=== PATIENT | female | born 1990 | race African-American/Black ===

== ENCOUNTER 2017-02-24 10:30 | Emergency (ER) | payer MEDICAID ==
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
[2017-02-24 12:36] VITALS: BP 97/51
== END 2017-02-24 12:18 | disposition home or self-care (01) ==
LOC: ER 10:30
DX: T59.811A Toxic effect of smoke, accidental (unintentional), initial encounter (principal); J70.5 Respiratory conditions due to smoke inhalation
CPT/HCPCS: 71020; 99283

== ENCOUNTER 2017-07-12 17:05 | Emergency (ER) | payer MEDICAID ==
--- NOTE | 2017-07-12 17:53 | ER Document Report ---
ED Medical Screen (RME) - General Chief Complaint: Abdominal Cramping Stated Complaint: NAUSEA// CRAMPING// Time Seen by Provider: 07/12/17 17:49 Notes: 26-year-old female patient comes emergency room complaining of a 1-1/2 week history of pelvic cramps, headache, nausea, chills, dizziness. Last menstrual period was 06/01/2017. This was confirmed by repeatedly asking the question. She states she does not think she is , she also states that her periods are normally regular. She does have a bag of food and soda from the [employer] in. I have greeted and performed a rapid initial assessment of this patient. A comprehensive ED assessment and evaluation of the patient, analysis of test results and completion of the medical decision making process will be conducted by additional ED providers. TRAVEL OUTSIDE OF THE [place] IN LAST 30 DAYS: No - Related Data Allergies/Adverse Reactions: No Known Allergies Allergy (Verified 07/12/17 17:46) Past Medical History - Social History Chew tobacco use (# tins/day): No Frequency of alcohol use: None Drug Abuse: None Renal/ Medical History: Denies: Hx Peritoneal Dialysis Psychiatric Medical History: Reports: Hx Anxiety Denies: Hx Depression - Immunizations Hx Diphtheria, Pertussis, Tetanus Vaccination: Yes Physical Exam - Vital signs Vitals: Temp Pulse Resp BP Pulse Ox 99.6 F 97 16 111/63 100 07/12/17 17:11 07/12/17 17:11 07/12/17 17:11 07/12/17 17:11 07/12/17 17:11 Course - Vital Signs Vital signs: Temp Pulse Resp BP Pulse Ox 99.6 F 97 16 111/63 100 07/12/17 17:11 07/12/17 17:11 07/12/17 17:11 07/12/17 17:11 07/12/17 17:11
[2017-07-12 18:37] LABS: APPEARANCE,URINE CLOUDY; BILIRUBIN,URINE NEGATIVE (NEGATIVE); GLUCOSE, URINE NEGATIVE (NEGATIVE); KETONES,URINE 20 mg/dL (NEGATIVE); LEUKOCYTE ESTERASE,URINE LARGE (NEGATIVE); NITRITE,URINE NEGATIVE (NEGATIVE); PROTEIN,URINE NEGATIVE (NEGATIVE); URINE SPECIFIC GRAVITY 1.027
[2017-07-12 18:39] LABS: HEMATOCRIT 32.1 % (36.0-47.0); HEMOGLOBIN 9.8 g/dL (12.0-15.5); HGB HCT DIFFERENCE -2.7; MEAN CORPUSCULAR HGB CONC 30.4 g/dL (32.0-36.0); RED BLOOD COUNT 5.13 10^6/uL (3.72-5.28); RED CELL DISTRIBUTION WIDTH 19.8 % (11.5-14.0); WHITE BLOOD COUNT 8.2 10^3/uL (4.0-10.5)
[2017-07-12 18:41] LABS: ALANINE AMINOTRANSFERASE 45 U/L (9-52); ALBUMIN 4.6 g/dL (3.5-5.0); ALKALINE PHOSPHATASE 69 U/L (38-126); ANION GAP 12 (5-19); ASPARTATE AMINO TRANSFERASE 24 U/L (14-36); BILIRUBIN,DIRECT 0.3 mg/dL (0.0-0.4); BILIRUBIN,TOTAL 0.6 mg/dL (0.2-1.3); BLOOD UREA NITROGEN 8 mg/dL (7-20); CALCIUM 9.7 mg/dL (8.4-10.2); CARBON DIOXIDE 26 mmol/L (22-30); CHLORIDE 102 mmol/L (98-107); CREATININE RESULT 0.57 mg/dL (0.52-1.25); GLUCOSE 100 mg/dL (75-110); POTASSIUM 3.6 mmol/L (3.6-5.0); SODIUM 140.3 mmol/L (137-145); TOTAL PROTEIN 7.6 g/dL (6.3-8.2)
[2017-07-12 18:48] LABS: MEAN CORPUSCULAR VOLUME 63 fl (80-97)
[2017-07-12 19:10] LABS: ANISOCYTOSIS 2+; BASOPHILS % (MANUAL) 1 % (0-2); EOSINOPHILS % (MANUAL) 0 % (0-6); LYMPHOCYTES % (MANUAL) 22 % (13-45); MICROCYTOSIS 3+; OVALOCYTES 2+; POIKILOCYTOSIS 2+; POLYCHROMASIA SLIGHT; ROULEAUX SLIGHT; TOTAL CELLS COUNTED 100; TOXIC GRANULATION 1+
[2017-07-12 19:20] LABS: ADD ON TESTING BLD IN LAB ACKNOWLEDGE
--- NOTE | 2017-07-12 21:44 | RADIOLOGY REPORT (SQ) ---
EXAM DESCRIPTION: U/S OB TRANSVAGINAL W/O DOP COMPLETED DATE/TIME: 07/12/2017 9:28 pm REASON FOR STUDY: Pelvic cramps COMPARISON: None. TECHNIQUE: Transvaginal static and realtime grayscale images acquired of the pelvis. Additional carol cted spectral and color Doppler images recorded. All images stored on PACs. BHC,521. LIMITATIONS: None. FINDINGS: UTERUS: No visualized intrauterine . RIGHT ADNEXA: Normal ovary with normal vascular flow. No adnexal free fluid. Small cystic structure measuring 1 cm. LEFT ADNEXA: Ovary not identified. No adnexal free fluid. No adnexal masses. FREE FLUID: None. OTHER: No other significant finding. IMPRESSION: NO VISUALIZED INTRA- OR EXTRAUTERINE . LEFT OVARY NOT VISUALIZED. ECTOPIC CANNOT BE EXCLUDED. FOLLOW-UP ULTRASOUND AND SERIAL BHCG LEVELS STRONGLY RECOMMENDED TO ACCURATELY ASSESS STATU S. TECHNICAL DOCUMENTATION: JOB ID: [id number] [employer]- All Rights Reserved
--- NOTE | 2017-07-12 21:58 | ER Document Report ---
ED General - General Chief Complaint: Abdominal Cramping Stated Complaint: ABDOMINAL CRAMPING Time Seen by Provider: 07/12/17 17:49 Notes: Patient is a 26-year-old female at unknown gestational age last menstrual period 06/01/17 who presents with 1 week of intermittent suprapubic abdominal cramping. She describes it as an intermittent, mild, cramping pain. Nothing improves or worsens that pain. She denies any history of similar symptoms in the past. She denies any dysuria, vaginal bleeding or discharge. No abdominal trauma. She has not seen her primary doctor or B2[employer] SALES REPRESENTATIVE regarding today's concerns. She has no prior history of pelvic inflammatory disease, sexually transmitted infections, or ectopic pregnancies. She denies any fever, vomiting , or diarrhea. No abdominal surgical history. TRAVEL OUTSIDE OF THE [place] IN LAST 30 DAYS: No - Related Data Allergies/Adverse Reactions: No Known Allergies Allergy (Verified 07/12/17 17:46) Past Medical History - General Information source: Patient - Social History Smoking Status: Never Smoker Chew tobacco use (# tins/day): No Frequency of alcohol use: None Drug Abuse: None Lives with: Spouse/Significant other Family History: Reviewed & Not Pertinent Patient has suicidal ideation: No Patient has homicidal ideation: No Renal/ Medical History: Denies: Hx Peritoneal Dialysis Psychiatric Medical History: Reports: Hx Anxiety Denies: Hx Depression - Immunizations Hx Diphtheria, Pertussis, Tetanus Vaccination: Yes Review of Systems - Review of Systems Notes: Constitutional: Negative for fever. HENT: Negative for sore throat. Eyes: Negative for visual changes. Cardiovascular: Negative for chest pain. Respiratory: Negative for shortness of breath. Gastrointestinal: Positive for abdominal pain Genitourinary: Negative for dysuria. Musculoskeletal: Negative for back pain. Skin: Negative for rash. Neurological: Negative for headaches, weakness or numbness. 10 point ROS negative except as marked above and in HPI. Physical Exam - Vital signs Vitals: Temp Pulse Resp BP Pulse Ox 99.6 F 97 16 111/63 100 07/12/17 17:11 07/12/17 17:11 07/12/17 17:11 07/12/17 17:11 07/12/17 17:11 Interpretation: Normal Notes: PHYSICAL EXAMINATION: GENERAL: Well-appearing, well-nourished and in no acute distress. HEAD: Atraumatic, normocephalic. EYES: Pupils equal round and reactive to light, extraocular movements intact, sclera anicteric, conjunctiva are normal. ENT: nares patent, oropharynx clear without exudates. Moist mucous membranes. NECK: Normal range of motion, supple without lymphadenopathy LUNGS: Breath sounds clear to auscultation bilaterally and equal. No wheezes rales or rhonchi. HEART: Regular rate and rhythm without murmurs ABDOMEN: Soft, very mild suprapubic abdominal tenderness otherwise no localized tenderness, normoactive bowel sounds. No guarding, no rebound. No masses appreciated. EXTREMITIES: Normal range of motion, no pitting or edema. No cyanosis. NEUROLOGICAL: No focal neurological deficits. Moves all extremities spontaneously and on command. PSYCH: Normal mood, normal affect. SKIN: Warm, Dry, normal turgor, no rashes or lesions noted. Course - Re-evaluation Re-evalutation: 07/12/17 21:57 Patient presents with symptoms and history worrisome for ectopic given that her hCG level is 11,000 and no intrauterine or extrauterine can be localized on a transvaginal ultrasound. The left ovary was not visualized however. Patient has no prior history of pelvic inflammatory disease, sexually transmitted infections or ectopic pregnancies. Her abdominal exam is overall benign without any localized tenderness other than the suprapubic region globally without any increased pain to the right or left adnexa. No vaginal bleeding or discharge. The remainder laboratories are overall unremarkable. I discussed this case with Dr. Fritz the B2B SALES REPRESENTATIVE [employer] special ed teacher who will come to assess the patient. 07/12/17 22:37 Dr. Fritz has come down to the bedside and reviewed the ultrasounds. He feels that there is evidence of an intrauterine on ultrasound and patient does not require repeat follow-up for possible ectopic . He has discussed this with the patient at the bedside. He has also contacted radiology and asked them to change the report. At this time will discharge with return precautions and follow-up recommendations. Verbal discharge instructions given a the bedside and opportunity for questions given. Medication warnings reviewed. Patient is in agreement with this plan and has verbalized understanding of return precautions and the need for B2B SALES REPRESENTATIVE follow- up in the next 24-72 hours. - Vital Signs Vital signs: Temp Pulse Resp BP Pulse Ox 98.5 F 88 18 120/78 98 07/12/17 23:19 07/12/17 23:19 07/12/17 23:19 07/12/17 23:19 07/12/17 23:19 - Laboratory Result Diagrams: 07/12/17 17:57 07/12/17 17:57 Laboratory results interpreted by me: 07/12/17 07/12/17 07/12/17 17:57 17:57 17:57 Hgb 9.8 L Hct 32.1 L MCV 63 L MCH 19.0 L MCHC 30.4 L RDW 19.8 H Serum HCG, Qual POSITIVE H Beta HCG, Quant Urine Ketones 20 H Urine Urobilinogen 4.0 H Ur Leukocyte Esterase LARGE H 07/12/17 17:57 Hgb Hct MCV MCH MCHC RDW Serum HCG, Qual Beta HCG, Quant 22429.00 H Urine Ketones Urine Urobilinogen Ur Leukocyte Esterase - Diagnostic Test Radiology reviewed: Reports reviewed Discharge - Discharge Clinical Impression: First trimester Abdominal pain during Qualifiers: Trimester: first trimester Qualified Code(s): O26.891 - Other specified related conditions, first trimester Condition: Good Disposition: HOME, SELF-CARE Additional Instructions: You were seen for abdominal pain during . Your ultrasound was initially concerning for possible ectopic but the B2B SALES REPRESENTATIVE who you saw Dr. Fritz has reviewed the ultrasounds and states that there is a inside her uterus. The exact cause your pain is uncertain but is likely related to your developing baby. Please follow-up with your B2B SALES REPRESENTATIVE in the next 24-48 hours. Return to the emergency department immediately if you have worsening of your pain, have persistent vomiting, develop a fever of greater than 100.4F, begin to have vaginal bleeding, or any other symptoms that are worrisome to you. Forms: Return to Work Referrals: DAVID FRITZ MD [Primary Care Provider] - Follow up as needed
[2017-07-12 23:20] VITALS: BP 120/78
== END 2017-07-12 23:19 | disposition home or self-care (01) ==
LOC: ER 17:05
DX: O26.891 Other specified pregnancy related conditions, first trimester (principal); R10.9 Unspecified abdominal pain; Z3A.01 Less than 8 weeks gestation of pregnancy
CPT/HCPCS: 36415; 76817; 80053; 81001; 84702; 84703; 85025; 87086; 99284

== ENCOUNTER 2017-07-22 14:24 | Emergency (ER) | payer MEDICAID ==
[2017-07-22] MEDS ORDERED: PROMETHAZINE HCL 25 MG TABLET PO ONE (14:59)
[2017-07-22] MEDS ORDERED: RINGERS SOLUTION,LACTATED 1,000 ML IV ONE (14:59)
--- NOTE | 2017-07-22 15:22 | ER Document Report ---
ED Medical Screen (RME) - General Chief Complaint: Nausea/Vomiting/Diarrhea Stated Complaint: VOMITING Time Seen by Provider: 07/22/17 14:54 Mode of Arrival: Ambulatory Information source: Patient Notes: Patient is a 26 year old female presenting to the emergency department complaining of nausea, vomiting, diarrhea, and left sided flank pain onset 2- weeks ago. Patient states that she is currently 4 weeks . Patient states she also has poor fluid and food intake. Patient denies dysuria, blood in vomit or stool, or any vaginal bleeding. Patient states her last menstrual cycle was 2016. I have greeted and performed a rapid initial assessment of this patient. A comprehensive ED assessment and evaluation of the patient, analysis of test results and completion of the medical decision making process will be conducted by additional ED providers. TRAVEL OUTSIDE OF THE [place] IN LAST 30 DAYS: No - Related Data Allergies/Adverse Reactions: No Known Allergies Allergy (Verified 07/22/17 14:25) Past Medical History Renal/ Medical History: Denies: Hx Peritoneal Dialysis Psychiatric Medical History: Reports: Hx Anxiety Denies: Hx Depression - Immunizations Hx Diphtheria, Pertussis, Tetanus Vaccination: Yes Physical Exam - Vital signs Vitals: Temp Pulse Resp BP Pulse Ox 98.8 F 91 20 111/66 100 07/22/17 14:38 07/22/17 14:38 07/22/17 14:38 07/22/17 14:38 07/22/17 14:38 - Notes Notes: GENERAL: Alert, interacts well. No acute distress. Course - Vital Signs Vital signs: Temp Pulse Resp BP Pulse Ox 98.8 F 91 20 111/66 100 07/22/17 14:38 07/22/17 14:38 07/22/17 14:38 07/22/17 14:38 07/22/17 14:38 Scribe Documentation - Scribe Written by Rudy:: Rudy Hood, 07/22/2017 15:27 acting as scribe for :: Gia
[2017-07-22 16:03] LABS: APPEARANCE,URINE SLIGHTLY-CLOUDY; BILIRUBIN,URINE NEGATIVE (NEGATIVE); GLUCOSE, URINE NEGATIVE (NEGATIVE); KETONES,URINE 80 mg/dL (NEGATIVE); LEUKOCYTE ESTERASE,URINE TRACE (NEGATIVE); NITRITE,URINE NEGATIVE (NEGATIVE); PROTEIN,URINE 30 mg/dL (NEGATIVE); URINE SPECIFIC GRAVITY 1.031
--- NOTE | 2017-07-22 16:08 | RADIOLOGY REPORT (SQ) ---
EXAM DESCRIPTION: U/S OB TRANSVAG W/DOPPLER COMPLETED DATE/TIME: 07/22/2017 3:57 pm REASON FOR STUDY: LLQ abd pain, possible ectopic COMPARISON: 07/12/2017 TECHNIQUE: Endovaginal static and realtime grayscale images acquired of the pelvis. Additional selec stephany spectral and color Doppler images recorded. All images stored on PACs. bHCG: Not available LIMITATIONS: None. FINDINGS: FETUS: Living intrauterine . EGA: 6 weeks 1 day by crown-rump length KAMILAH: 03/16/2018 FHR: 115 beats per minute. SUBCHORIONIC BLEED: Yes SIZE OF BLEED: Large subchorionic hemorrhage 3 x 2 x 1 cm in size UTERUS: No masses. No anomalies. Uterus is 10.7 x 7 x 6.5 cm in size CERVICAL LENGTH: 4 cm Closed. RIGHT ADNEXA: Not visualized due to adnexal bowel gas LEFT ADNEXA: Not visualized due to adnexal bowel gas FREE FLUID: None. OTHER: No other significant finding. IMPRESSION: LIVING INTRAUTERINE . EGA 6 weeks 1 day by crown-rump length. Large subchorionic hemorrhage, 3 x 2 x 1 cm in size. Trimester of : First - 0 to 13 weeks. TECHNICAL DOCUMENTATION: JOB ID: [id number] [employer]- All Rights Reserved
[2017-07-22] MEDS ORDERED: ACETAMINOPHEN 325 MG TABLET PO ONE (16:32)
[2017-07-22 17:03] LABS: ABSOLUTE BASOPHILS # (AUTO) 0.1 10^3/uL (0.0-0.2); ABSOLUTE LYMPHOCYTES (AUTO) 1.5 10^3/uL (0.5-4.7); ABSOLUTE MONOCYTES (AUTO) 0.7 10^3/uL (0.1-1.4); ABSOLUTE NEUT (AUTO) 5.1 10^3/uL (1.7-8.2); BASOPHILS % (AUTO) 1.1 % (0-2); HEMATOCRIT 34.1 % (36.0-47.0); HEMOGLOBIN 10.3 g/dL (12.0-15.5); HGB HCT DIFFERENCE -3.2; MEAN CORPUSCULAR HEMOGLOBIN 19.2 pg (27.0-33.4); MEAN CORPUSCULAR HGB CONC 30.1 g/dL (32.0-36.0); MONOCYTES % (AUTO) 9.7 % (3-13); RED BLOOD COUNT 5.36 10^6/uL (3.72-5.28); RED CELL DISTRIBUTION WIDTH 19.6 % (11.5-14.0); SEGMENTED NEUTROPHILS % (AUTO) 69.2 % (42-78); WHITE BLOOD COUNT 7.4 10^3/uL (4.0-10.5)
[2017-07-22 17:16] LABS: ALANINE AMINOTRANSFERASE 25 U/L (9-52); ALBUMIN 4.6 g/dL (3.5-5.0); ALKALINE PHOSPHATASE 62 U/L (38-126); ANION GAP 14 (5-19); ASPARTATE AMINO TRANSFERASE 20 U/L (14-36); BILIRUBIN,DIRECT 0.2 mg/dL (0.0-0.4); BILIRUBIN,TOTAL 0.5 mg/dL (0.2-1.3); BLOOD UREA NITROGEN 8 mg/dL (7-20); CALCIUM 9.8 mg/dL (8.4-10.2); CARBON DIOXIDE 25 mmol/L (22-30); CHLORIDE 99 mmol/L (98-107); CREATININE RESULT 0.54 mg/dL (0.52-1.25); GLUCOSE 76 mg/dL (75-110); POTASSIUM 4.1 mmol/L (3.6-5.0); SODIUM 138.2 mmol/L (137-145); TOTAL PROTEIN 7.6 g/dL (6.3-8.2)
[2017-07-22 17:20] LABS: MEAN CORPUSCULAR VOLUME 64 fl (80-97)
[2017-07-22 17:24] LABS: ANISOCYTOSIS 2+; MICROCYTOSIS 3+; OVALOCYTES 1+; TOXIC GRANULATION SLIGHT
[2017-07-22 17:25] LABS: HYPOCHROMASIA SLIGHT; POIKILOCYTOSIS 1+
[2017-07-22 17:26] LABS: POLYCHROMASIA SLIGHT
[2017-07-22] MEDS ORDERED: DEXTROSE 5%-1/2 NORMAL SALINE 1,000 ML IV ONE (17:38)
--- NOTE | 2017-07-22 17:41 | ER Document Report ---
ED GI/ - General Chief Complaint: Nausea/Vomiting/Diarrhea Stated Complaint: VOMITING Time Seen by Provider: 07/22/17 14:54 Mode of Arrival: Ambulatory Notes: The patient is a 26-year-old female, 6 weeks by LMP, , presents with nausea, vomiting and diarrhea for the past several days. She is also having left flank pain. She was in the ER 10 days ago and the ultrasound showed a possible intrauterine , but it was not fully visualized. Patient has not received any antiemetics to use at home but she has an appointment with the health department for her OB needs. Patient denies vaginal bleeding, cramping, dysuria, hematuria, fevers, vaginal discharge, syncope, chest pain, shortness of breath or sick contacts. TRAVEL OUTSIDE OF THE [place] IN LAST 30 DAYS: No - Related Data Allergies/Adverse Reactions: No Known Allergies Allergy (Verified 07/22/17 14:25) Past Medical History - General Information source: Patient - Social History Smoking Status: Unknown if Ever Smoked Family History: Reviewed & Not Pertinent Patient has suicidal ideation: No Patient has homicidal ideation: No Renal/ Medical History: Denies: Hx Peritoneal Dialysis Psychiatric Medical History: Reports: Hx Anxiety Denies: Hx Depression - Immunizations Hx Diphtheria, Pertussis, Tetanus Vaccination: Yes Review of Systems - Review of Systems Notes: REVIEW OF SYSTEMS: CONSTITUTIONAL: -fevers, -chills EENT: -eye pain, -difficulty swallowing, -nasal congestion CARDIOVASCULAR:-chest pain, -syncope. RESPIRATORY: -cough, -SOB GASTROINTESTINAL: -abdominal pain, +nausea, +vomiting, -diarrhea GENITOURINARY: -dysuria, -hematuria MUSCULOSKELETAL: +left flank pain, -neck pain SKIN: -rash or skin lesions. HEMATOLOGIC: -easy bruising or bleeding. LYMPHATIC: -swollen, enlarged glands. NEUROLOGICAL: -altered mental status or loss of consciousness, -headache, - neurologic symptoms PSYCHIATRIC: -anxiety, -depression. ALL OTHER SYSTEMS REVIEWED AND NEGATIVE. Physical Exam - Vital signs Vitals: Temp Pulse Resp BP Pulse Ox 98.8 F 91 20 111/66 100 07/22/17 14:38 07/22/17 14:38 07/22/17 14:38 07/22/17 14:38 07/22/17 14:38 - Notes Notes: PHYSICAL EXAMINATION: GENERAL: Well-appearing, well-nourished and in no acute distress. HEAD: Atraumatic, normocephalic. EYES: Pupils equal round and reactive to light, extraocular movements intact, sclera anicteric, conjunctiva are normal. ENT: nares patent, oropharynx clear without exudates. Moist mucous membranes. NECK: Normal range of motion, supple without lymphadenopathy LUNGS: Breath sounds clear to auscultation bilaterally and equal. No wheezes rales or rhonchi. HEART: Regular rate and rhythm without murmurs ABDOMEN: Soft, nontender, normoactive bowel sounds. No guarding, no rebound. No masses appreciated. EXTREMITIES: Normal range of motion, no pitting or edema. No cyanosis. NEUROLOGICAL: Cranial nerves grossly intact. Normal speech, normal gait. Normal sensory and motor exams. PSYCH: Normal mood, normal affect. SKIN: Warm, Dry, normal turgor, no rashes or lesions noted. Course - Re-evaluation Re-evalutation: Patient appears well. A repeat ultrasound confirms intrauterine consistent with dates along with a subchorionic hemorrhage. This was communicated to the patient and a copy of her ultrasound report was given. No vaginal bleeding at this time and she is feeling much better after IV fluids and antiemetics. Eating and drinking in the ED without nausea, vomiting or abdominal pain. Her urinalysis does not show evidence of a UTI and her prior urine culture from last week shows lactobacillus and no other bacterial infections. She has no urinary symptoms. Her left flank pain appears to be MSK in nature due to worsening pain with movement. Will send home patient with Phenergan, instructions to stay hydrated and follow-up with her OB. Given very strict return precautions and she understands. - Vital Signs Vital signs: Temp Pulse Resp BP Pulse Ox 98.8 F 91 20 111/66 100 07/22/17 14:38 07/22/17 14:38 07/22/17 14:38 07/22/17 14:38 07/22/17 14:38 - Laboratory Result Diagrams: 07/22/17 16:30 07/22/17 16:30 Laboratory results interpreted by me: 07/22/17 07/22/17 07/22/17 15:15 16:30 16:30 RBC 5.36 H Hgb 10.3 L Hct 34.1 L MCV 64 L MCH 19.2 L MCHC 30.1 L RDW 19.6 H Beta HCG, Quant 225011.00 H Urine Protein 30 H Urine Ketones 80 H Urine Urobilinogen 2.0 H Ur Leukocyte Esterase TRACE H Urine Ascorbic Acid 40 H - Diagnostic Test Radiology reviewed: Image reviewed, Reports reviewed Radiology results interpreted by me: OB Transvaginal: LIVING INTRAUTERINE . EGA 6 weeks 1 day by crown- rump length. Large subchorionic hemorrhage, 3 x 2 x 1 cm in size. Discharge - Discharge Clinical Impression: Hyperemesis gravidarum Condition: Stable Disposition: HOME, SELF-CARE Additional Instructions: Hyperemesis Gravidarum Hyperemesis gravidarum is the medical term for severe vomiting during . We don't know exactly why it occurs, but it's a common problem. Dehydration can occur. This reduces blood flow to the placenta, decreasing the baby's nourishment. The baby will also become dehydrated. There can be harmful changes in blood sodium, potassium, or acid balance. Our goal is to correct, and prevent, dehydration. For severe cases, we give IV fluids. Antinausea medication will be prescribed. (Don't be concerned about " defects" -- the risk to you and your baby from the hyperemesis is the biggest problem. The antinausea medication is very safe at this stage of .) Call the doctor if you have vaginal bleeding, abdominal pain, severe lightheadedness or weakness, or other alarming symptoms. Prescriptions: Promethazine HCl [Phenergan 25 mg Tablet] 1 - 2 tab PO Q6H PRN #30 tablet PRN Reason: Referrals: DAVID ENRIQUEZ MD [ACTIVE STAFF] - Follow up as needed
[2017-07-22 19:09] VITALS: BP 102/55
[2017-07-26 10:58] LABS: PATH REVIEW PATHOLOGIST REVIEWED
== END 2017-07-22 19:12 | disposition home or self-care (01) ==
LOC: ER 14:24
DX: O21.0 Mild hyperemesis gravidarum (principal); R19.7 Diarrhea, unspecified; Z3A.00 Weeks of gestation of pregnancy not specified
CPT/HCPCS: 99284; 96361; 96365; 86900; 86901; 36415; 84702; 85025; 80053; 81001; 76817; 93976; J3490 ×2; J7120

== ENCOUNTER 2017-08-25 08:18 | Inpatient (IN) | payer MEDICAID ==
--- NOTE | 2017-08-25 08:37 | ER Document Report ---
ED GI/ - General Chief Complaint: Vaginal Bleeding Stated Complaint: ABNORMAL BLEEDING Time Seen by Provider: 08/25/17 08:35 Mode of Arrival: Medic Information source: Patient Notes: 26 yo female got up at 7 am and blood running down legs. Cramping now. in [facility] 07-29. Bled for 2 weeks then stopped. Sex since . No contraception. No hormones. Headache. TRAVEL OUTSIDE OF THE [place] IN LAST 30 DAYS: No - Related Data Allergies/Adverse Reactions: No Known Allergies Allergy (Verified 07/22/17 14:25) Past Medical History - Social History Family History: Reviewed & Not Pertinent Renal/ Medical History: Denies: Hx Peritoneal Dialysis Psychiatric Medical History: Reports: Hx Anxiety Denies: Hx Depression - Immunizations Hx Diphtheria, Pertussis, Tetanus Vaccination: Yes Physical Exam - Vital signs Vitals: Temp Pulse Resp BP Pulse Ox 98.9 F 108 H 18 112/65 100 08/25/17 08:27 08/25/17 08:27 08/25/17 08:27 08/25/17 08:27 08/25/17 08:27 Course - Vital Signs Vital signs: Temp Pulse Resp BP Pulse Ox 98.9 F 108 H 18 112/65 100 08/25/17 08:27 08/25/17 08:27 08/25/17 08:27 08/25/17 08:27 08/25/17 08:27
--- NOTE | 2017-08-25 08:43 | ER Document Report ---
ED GI/ - General Chief Complaint: Vaginal Bleeding Stated Complaint: ABNORMAL BLEEDING Time Seen by Provider: 08/25/17 08:35 Mode of Arrival: Medic Information source: Patient Notes: 26 yo female had pill aborition in [place] at 8 weeks on 07-29, bled for 2 weeks then stopped. Got up this morning and blood running down legs with large clot at home. Cramping in now starting. Sex since without contraception. headache. no fever. Not feeling right all month, very tired. TRAVEL OUTSIDE OF THE [place] IN LAST 30 DAYS: No - Related Data Allergies/Adverse Reactions: No Known Allergies Allergy (Verified 08/25/17 09:10) Past Medical History - General Information source: Patient - Social History Smoking Status: Unknown if Ever Smoked Frequency of alcohol use: None Drug Abuse: None Lives with: Family Family History: Reviewed & Not Pertinent Renal/ Medical History: Denies: Hx Peritoneal Dialysis Psychiatric Medical History: Reports: Hx Anxiety Denies: Hx Depression Surgical Hx: Negative - Immunizations Hx Diphtheria, Pertussis, Tetanus Vaccination: Yes Review of Systems - Review of Systems Constitutional: No symptoms reported EENT: No symptoms reported Cardiovascular: No symptoms reported Respiratory: No symptoms reported Gastrointestinal: No symptoms reported Genitourinary: No symptoms reported Female Genitourinary: See HPI Musculoskeletal: No symptoms reported Skin: No symptoms reported Hematologic/Lymphatic: No symptoms reported Neurological/Psychological: No symptoms reported Physical Exam - Vital signs Vitals: Temp Pulse Resp BP Pulse Ox 98.9 F 108 H 18 112/65 100 08/25/17 08:27 08/25/17 08:27 08/25/17 08:27 08/25/17 08:27 08/25/17 08:27 Interpretation: Normal - General General appearance: Appears well - HEENT Head: Normocephalic, Atraumatic Eyes: Normal Pupils: PERRL Neck: Supple - Respiratory Respiratory status: No respiratory distress Chest status: Nontender Breath sounds: Normal Chest palpation: Normal - Cardiovascular Rhythm: Regular Heart sounds: Normal auscultation Murmur: No - Abdominal Inspection: Normal Distension: No distension Bowel sounds: Normal Tenderness: Nontender. No: Tender Organomegaly: No organomegaly - Back Back: Normal, Nontender. No: Tender - Extremities General upper extremity: Normal inspection, Nontender, Normal color, Normal ROM , Normal temperature General lower extremity: Normal inspection, Nontender, Normal color, Normal ROM , Normal temperature, Normal weight bearing. No: Marcelo's sign - Neurological Neuro grossly intact: Yes Cognition: Normal Orientation: AAOx4 Ja Coma Scale Eye Opening: Spontaneous [place] Coma Scale Verbal: Oriented Ja Coma Scale Motor: Obeys Commands Ja Coma Scale Total: 15 Speech: Normal Motor strength normal: LUE, RUE, LLE, RLE Sensory: Normal - Psychological Associated symptoms: Normal affect, Normal mood - Skin Skin Temperature: Warm Skin Moisture: Dry Skin Color: Normal Skin irregularity: negative: Rash Course - Re-evaluation Re-evalutation: 08/25/17 09:03 Patient became syncopal in the bathroom she is in trauma to IV infusing type and screen has been ordered pressure is now 95 systolic. pt no longer dizzy. 08/25/17 09:41 abdomen non tender 1 dark clot in [place], bluish discoloration to cervix. 9 more minutes on the HCG 08/25/17 10:07 hgb 5.5 hct 19.1 called by hematology, 2 units blood ordered to be given 08/25/17 10:10 Patient has history of anemia and needing iron infusions. 08/25/17 11:25 vaginal ultrasound shows nonviable 6 week intrauterine fetus. Large episode of bleeding after the ultrasound Dr. Ashby called in at the bedside. cytotec 1000mcg given SD 08/25/17 11:26 - Vital Signs Vital signs: Temp Pulse Resp BP Pulse Ox 98.9 F 108 H 26 H 90/48 L 100 08/25/17 08:27 08/25/17 08:27 08/25/17 11:26 08/25/17 11:26 08/25/17 11:06 - Laboratory Result Diagrams: 08/25/17 08:58 08/25/17 08:58 Laboratory results interpreted by me: 08/25/17 08/25/17 08/25/17 08:56 08:58 08:58 RBC 3.15 L Hgb 5.5 L Hct 19.1 L MCV 61 L MCH 17.3 L MCHC 28.6 L RDW 21.7 H Plt Count 88 L Potassium Carbon Dioxide Glucose POC Glucose 146 H Beta HCG, Quant 3531.90 H Urine Blood Ur Leukocyte Esterase Crossmatch 08/25/17 08/25/17 08/25/17 08:58 08:58 10:41 RBC Hgb Hct MCV MCH MCHC RDW Plt Count Potassium 3.3 L Carbon Dioxide 21 L Glucose 124 H POC Glucose Beta HCG, Quant Urine Blood LARGE H Ur Leukocyte Esterase TRACE H Crossmatch See Detail Discharge - Discharge Clinical Impression: non viable IUP, vaginal bleeding Condition: Fair Disposition: ADMITTED OBSERVATION Admitting Provider: [facility] Admitted: OR Referrals: EVIE LANDA MD [Primary Care Provider] - Follow up as needed
[2017-08-25] MEDS ORDERED: NORMAL SALINE 1000 ML 2,000 ML IV ONE (09:01)
[2017-08-25 09:17] LABS: ABSOLUTE BASOPHILS # (AUTO) 0.1 10^3/uL (0.0-0.2); ABSOLUTE LYMPHOCYTES (AUTO) 2.1 10^3/uL (0.5-4.7); BASOPHILS % (AUTO) 0.7 % (0-2); RED CELL DISTRIBUTION WIDTH 21.7 % (11.5-14.0); TOTAL CELLS COUNTED % (AUTO) 100 %
[2017-08-25] MEDS ORDERED: ACETAMINOPHEN 325 MG TABLET PO ONE (10:02)
[2017-08-25 10:03] LABS: RED BLOOD COUNT 3.15 10^6/uL (3.72-5.28); WHITE BLOOD COUNT 7.9 10^3/uL (4.0-10.5)
[2017-08-25 10:04] LABS: HEMATOCRIT 19.1 % (36.0-47.0); MEAN CORPUSCULAR HEMOGLOBIN 17.3 pg (27.0-33.4); MEAN CORPUSCULAR HGB CONC 28.6 g/dL (32.0-36.0)
[2017-08-25] MEDS ORDERED: NORMAL SALINE 250 ML IV PRN ×2 (10:04)
[2017-08-25 10:05] LABS: LYMPHOCYTES % (AUTO) 26.5 % (13-45); MEAN CORPUSCULAR VOLUME 61 fl (80-97); PLATELET COUNT 88 10^3/uL (150-450); SEGMENTED NEUTROPHILS % (AUTO) 62.9 % (42-78)
[2017-08-25 10:06] LABS: ABSOLUTE MONOCYTES (AUTO) 0.8 10^3/uL (0.1-1.4); MONOCYTES % (AUTO) 9.9 % (3-13)
[2017-08-25 10:07] LABS: HEMOGLOBIN 5.5 g/dL (12.0-15.5)
[2017-08-25 10:08] LABS: HYPOCHROMASIA 2+; OVALOCYTES 2+; POIKILOCYTOSIS 2+; POLYCHROMASIA SLIGHT; ROULEAUX SLIGHT; TEAR DROP CELLS SLIGHT
[2017-08-25 10:09] LABS: ANISOCYTOSIS 2+; PLATELET COMMENT DECREASED
--- NOTE | 2017-08-25 10:25 | RADIOLOGY REPORT (SQ) ---
EXAM DESCRIPTION: CT HEAD WITHOUT COMPLETED DATE/TIME: 08/25/2017 10:14 am REASON FOR STUDY: headache COMPARISON: None. TECHNIQUE: Axial images acquired through the brain without intravenous contrast. Images reviewed wi th bone, brain and subdural windows. Images stored on PACS. All CT scanners at this facility use dose modulation, iterative reconstruction, and/or weight based d osing when appropriate to reduce radiation dose to as low as reasonably achievable (ALARA). [facility]: Dose Right [facility]: CareDose [facility]: Dose Right [facility]: Teradose 4D [facility]: Rollbar RADIATION DOSE: mGy. LIMITATIONS: None. FINDINGS: VENTRICLES: Normal size and contour. CEREBRUM: No masses. No hemorrhage. No midline shift. No evidence for acute infarction. Normal gra y/white matter differentiation. No areas of low density in the white matter. CEREBELLUM: No masses. No hemorrhage. No alteration of density. No evidence for acute infarction. EXTRAAXIAL SPACES: No fluid collections. No masses. ORBITS AND GLOBE: No intra- or extraconal masses. Normal contour of globe without masses. CALVARIUM: No fracture. PARANASAL SINUSES: No fluid or mucosal thickening. SOFT TISSUES: No mass or hematoma. OTHER: No other significant finding. IMPRESSION: NORMAL BRAIN CT WITHOUT CONTRAST. EVIDENCE OF ACUTE STROKE: NO. COMMENT: Quality ID # [id number]: Final reports with documentation of one or more dose reduction techniques (e.g., Automated exposure control, adjustment of the mA and/or kV according to patient size, use of iterative reconstruction technique) TECHNICAL DOCUMENTATION: JOB ID: [id number] [employer]- All Rights Reserved
[2017-08-25 10:38] LABS: ALANINE AMINOTRANSFERASE 18 U/L (9-52); ALBUMIN 3.9 g/dL (3.5-5.0); ALKALINE PHOSPHATASE 42 U/L (38-126); ANION GAP 11 (5-19); ASPARTATE AMINO TRANSFERASE 18 U/L (14-36); BILIRUBIN,DIRECT 0.2 mg/dL (0.0-0.4); BILIRUBIN,TOTAL 0.3 mg/dL (0.2-1.3); BLOOD UREA NITROGEN 7 mg/dL (7-20); CALCIUM 9.1 mg/dL (8.4-10.2); CARBON DIOXIDE 21 mmol/L (22-30); CHLORIDE 106 mmol/L (98-107); GLUCOSE 124 mg/dL (75-110); POTASSIUM 3.3 mmol/L (3.6-5.0); SODIUM 138.3 mmol/L (137-145); TOTAL PROTEIN 6.4 g/dL (6.3-8.2)
[2017-08-25 10:56] LABS: APPEARANCE,URINE SLIGHTLY-CLOUDY; BILIRUBIN,URINE NEGATIVE (NEGATIVE); COLOR,URINE YELLOW; GLUCOSE, URINE NEGATIVE (NEGATIVE); KETONES,URINE NEGATIVE (NEGATIVE); LEUKOCYTE ESTERASE,URINE TRACE (NEGATIVE); NITRITE,URINE NEGATIVE (NEGATIVE); PROTEIN,URINE NEGATIVE (NEGATIVE); URINE SPECIFIC GRAVITY 1.004; UROBILINOGEN,URINE NEGATIVE mg/dL (<2.0)
[2017-08-25] MEDS ORDERED: NORMAL SALINE 1000 ML 1,000 ML IV ONE (11:14)
[2017-08-25] MEDS ORDERED: MISOPROSTOL 0.1 MG TABLET PV ONE (11:18)
[2017-08-25] MEDS ORDERED: MISOPROSTOL 0.1 MG TABLET ONE (11:21)
--- NOTE | 2017-08-25 11:28 | RADIOLOGY REPORT (SQ) ---
EXAM DESCRIPTION: U/S [id number] TRNABD 1GES W/ODOP COMPLETED DATE/TIME: 08/25/2017 11:13 am REASON FOR STUDY: vag bleed, pill 07-29 COMPARISON: 07/12/2017. TECHNIQUE: Transabdominal static and realtime grayscale images acquired of the pelvis. Additional se lected spectral and color Doppler images recorded. All images stored on PACs. bHC,506. LIMITATIONS: None. FINDINGS: FETUS: Irregular gestational sac in the endometrial cavity with small pole. EGA: 6 week 2 day. KAMILAH: 04/18/2018. FHR: No cardiac activity detected. SUBCHORIONIC BLEED: No. SIZE OF BLEED: Not applicable. UTERUS: No masses. No anomalies. RIGHT ADNEXA: Normal ovary with normal vascular flow. No adnexal free fluid. No adnexal masses. LEFT ADNEXA: Normal ovary with normal vascular flow. No adnexal free fluid. No adnexal masses. FREE FLUID: None. OTHER: No other significant finding. IMPRESSION: IRREGULAR GESTATIONAL SAC IN THE ENDOMETRIAL CAVITY WITH SMALL POLE. NO CAR DIAC ACTIVITY CONSISTENT WITH DEMISE. EGA 6 WEEK 2 DAY. Trimester of : First - 0 to 13 weeks. TECHNICAL DOCUMENTATION: JOB ID: [id number] [employer]- All Rights Reserved
[2017-08-25] MEDS ORDERED: FAMOTIDINE INJ/PF 20 MG/2 ML SDV IV ONE (11:49)
[2017-08-25] MEDS ORDERED: CEFAZOLIN INJ 1 GM VIAL ONE (11:49)
--- NOTE | 2017-08-25 11:50 | PDOC H&P ---
History of Present Illness Admission Date/PCP: EVIE LANDA MD Patient complains of: took mifepristone in Jul for EAB. Had bleeding x 2 weeks. Today had increased vaginal bleeding History of Present Illness: TRINO WILLS is a 26 year old female presented with vaginal bleeding and fears of "having a stroke". Vaginal bleeding increased and noted to have several clots. sonogram revealed a retained 6 wk fetus that did not pass with her EAB in july most likely. With the increased vaginal bleeding patient became hypotensive and slightly tachycardic. Noted to be very anemic. (has a component of chronic anemia with history of FE transfusions in the past.) Past Medical History Psychiatric Medical History: Denies: Depression Social History Lives with: Family Smoking Status: Unknown if Ever Smoked Frequency of Alcohol Use: None Hx Recreational Drug Use: No Hx Prescription Drug Abuse: No Family History Family History: Reviewed & Not Pertinent Parental Family History Reviewed: Yes Children Family History Reviewed: Yes Sibling(s) Family History Reviewed.: Yes Medication/Allergy Home Medications: No Home Medications 08/25/17 Allergies/Adverse Reactions: No Known Allergies Allergy (Verified 08/25/17 09:10) Review of Systems Constitutional: PRESENT: as per HPI, chills, weakness Physical Exam - Physical Exam Vital Signs: Temp Pulse Resp BP Pulse Ox 98.3 F 108 H 21 H 80/57 L 98 08/25/17 11:31 08/25/17 08:27 08/25/17 11:31 08/25/17 11:31 08/25/17 11:31 Intake & Output 08/24/17 08/25/17 08/26/17 06:59 06:59 06:59 Intake Total 0 Balance 0 Weight 68.6 kg - Gynecological Exam Labia: normal Urethra: normal Vagina: other - pale Cervix: normal, other - os open Cervix: normal Uterus: normal Result Laboratory Results: 08/25/17 08:58 08/25/17 08:58 08/25/17 08/25/17 08/25/17 08:58 08:58 08:58 WBC 7.9 RBC 3.15 L Hgb 5.5 L Hct 19.1 L MCV 61 L MCH 17.3 L MCHC 28.6 L RDW 21.7 H Plt Count 88 L Seg Neutrophils % 62.9 Lymphocytes % 26.5 Monocytes % 9.9 Eosinophils % 0.0 Basophils % 0.7 Absolute Neutrophils 5.0 Absolute Lymphocytes 2.1 Absolute Monocytes 0.8 Absolute Eosinophils 0.0 Absolute Basophils 0.1 Sodium 138.3 Potassium 3.3 L Chloride 106 Carbon Dioxide 21 L Anion Gap 11 BUN 7 Creatinine 0.55 Est GFR ( Amer) > 60 Est GFR (Non-Af Amer) > 60 Glucose 124 H Calcium 9.1 Total Bilirubin 0.3 AST 18 ALT 18 Alkaline Phosphatase 42 Total Protein 6.4 Albumin 3.9 Urine Color Urine Appearance Urine pH Ur Specific [place] Urine Protein Urine Glucose (UA) Urine Ketones Urine Blood Urine Nitrite Ur Leukocyte Esterase Urine WBC (Auto) Urine RBC (Auto) Blood Type AB NEGATIVE Antibody Screen POSITIVE 08/25/17 10:41 WBC RBC Hgb Hct MCV MCH MCHC RDW Plt Count Seg Neutrophils % Lymphocytes % Monocytes % Eosinophils % Basophils % Absolute Neutrophils Absolute Lymphocytes Absolute Monocytes Absolute Eosinophils Absolute Basophils Sodium Potassium Chloride Carbon Dioxide Anion Gap BUN Creatinine Est GFR ( Amer) Est GFR (Non-Af Amer) Glucose Calcium Total Bilirubin AST ALT Alkaline Phosphatase Total Protein Albumin Urine Color YELLOW Urine Appearance SLIGHTLY-CLOUDY Urine pH 6.0 Ur Specific [place] 1.004 Urine Protein NEGATIVE Urine Glucose (UA) NEGATIVE Urine Ketones NEGATIVE Urine Blood LARGE H Urine Nitrite NEGATIVE Ur Leukocyte Esterase TRACE H Urine WBC (Auto) 4 Urine RBC (Auto) 16 Blood Type Antibody Screen Impressions: Obstetrics Ultrasound 08/25/17 08:42 IMPRESSION: IRREGULAR GESTATIONAL SAC IN THE ENDOMETRIAL CAVITY WITH SMALL POLE. NO CARDIAC ACTIVITY CONSISTENT WITH DEMISE. EGA 6 WEEK 2 DAY. Trimester of : First - 0 to [address] 08/25/17 10:02 IMPRESSION: NORMAL BRAIN CT WITHOUT CONTRAST. EVIDENCE OF ACUTE STROKE: NO. Assessment & Plan - Diagnosis (1) Retained products of conception following Is this a current diagnosis for this admission?: Yes (2) Qualifiers: Weeks of gestation: less than 8 weeks Qualified Code(s): Z3A.01 - Less than 8 weeks gestation of Is this a current diagnosis for this admission?: Yes (3) Hemorrhage Is this a current diagnosis for this admission?: Yes - Time Time Spent: 50 to 70 Minutes Critical Time spent with patient: 15-24 minutes Anticipated discharge: Home Within: within 24 hours - Plan Summary Plan Summary: posted for suction d&c. To OR now for procedure. reviewed risk/benefits/ alternatives with patient and partner who was present.
[2017-08-25] MEDS ORDERED: MIDAZOLAM 2 MG/2 ML INJ ONE (11:58)
[2017-08-25] MEDS ORDERED: OXYTOCIN 10 UNIT/ML VIAL ONE (11:58)
[2017-08-25] MEDS ORDERED: PROPOFOL INJ 200 MG/20 ML VIAL IV ONE (11:58)
[2017-08-25] MEDS ORDERED: FENTANYL CITRATE INJ/PF 100 MCG/2 ML AMPUL ONE (11:58)
[2017-08-25 12:02] LABS: INTERNATIONAL RATION (INR) 0.95; PROTHROMBIN TIME 13.3 SEC (11.4-15.4)
--- NOTE | 2017-08-25 12:49 | OPERATIVE REPORT E ---
Operative Report NAME: TRINO WILLS : 1990 AGE: 26Y DATE OF SURGERY: 08/25/2017 ROOM: PREOPERATIVE DIAGNOSES: 1. RETAINED PRODUCTS OF CONCEPTION. 2. HEMORRHAGE. 3. ANEMIA OF ACUTE BLOOD LOSS. 4. CHRONIC ANEMIA. POSTOPERATIVE DIAGNOSES: 1. RETAINED PRODUCTS OF CONCEPTION. 2. HEMORRHAGE. 3. ANEMIA OF ACUTE BLOOD LOSS. 4. CHRONIC ANEMIA. OPERATION: SUCTION DILATION AND CURETTAGE. SURGEON: KAYY DELACRUZ M.D. ANESTHESIA: Dr. Valdez with general. FINDINGS: A 19-[id number] uterus with copious amounts of products of conception obtained. ESTIMATED BLOOD LOSS: Intraoperatively about 100 mL, preoperatively approximately 500 mL. COMPLICATIONS: None. PATHOLOGY: Retained products of conception. PROCEDURE IN DETAIL: Patient was taken to the operating room, prepared and draped in normal sterile fashion in a dorsal lithotomy position in [facility]. In-and-out cath was performed with approximately 150 mL of clear urine obtained. A sterile speculum was placed in the vagina, and the cervix was grasped with a single-tooth tenaculum on the anterior lip. A large amount of blood was noted in the vagina at this time. The cervix was then prepped with Betadine, and the cervix was dilated to a 9. An 8-mm curved curette was then introduced under suction, and the products were obtained with several passes of the curettage. A sharp curettage was then performed to ensure that there was 360 degrees of true grit in the uterus, and there was so. The tenaculum was removed, and the cervix was watched to ensure that active bleeding was not resuming. We watched for approximately 2-1/2 minutes, and there was no further active bleeding noted. Therefore, the speculum was removed and all instruments were removed. The patient was taken down and taken to PACU in stable condition. Sponge, lap and needle counts were correct x2. DICTATING PHYSICIAN: KAYY DELACRUZ M.D. [id number] PHY#: [id number] ID: [id number] JOB#: [id number] ACCT: [id number] cc:KAYY DELACRUZ M.D. >
[2017-08-25 13:10] LABS: HEMATOCRIT 15.1 % (36.0-47.0); MEAN CORPUSCULAR HEMOGLOBIN 20.4 pg (27.0-33.4); MEAN CORPUSCULAR HGB CONC 30.9 g/dL (32.0-36.0); RED BLOOD COUNT 2.29 10^6/uL (3.72-5.28); RED CELL DISTRIBUTION WIDTH 26.8 % (11.5-14.0); WHITE BLOOD COUNT 4.5 10^3/uL (4.0-10.5)
[2017-08-25 13:28] LABS: HEMOGLOBIN 4.7 g/dL (12.0-15.5)
[2017-08-25 13:29] LABS: MEAN CORPUSCULAR VOLUME 66 fl (80-97)
[2017-08-25 13:32] LABS: PLATELET COUNT 35 10^3/uL (150-450)
[2017-08-25 13:36] LABS: ABSOLUTE LYMPHOCYTES# (MANUAL) 0.6 10^3/uL (0.5-4.7); ABSOLUTE MONOCYTES # (MANUAL) 0.1 10^3/uL (0.1-1.4); ABSOLUTE NEUTROPHILS# (MANUAL) 3.8 10^3/uL (1.7-8.2); BASOPHILS % (MANUAL) 0 % (0-2); EOSINOPHILS % (MANUAL) 0 % (0-6); LYMPHOCYTES % (MANUAL) 13 % (13-45); METAMYELOCYTES % (MANUAL) 1 % (0); MONOCYTES % (MANUAL) 2 % (3-13); SEGMENTED NEUTROPHILS % (MAN) 83 % (42-78); TOTAL CELLS COUNTED 100
[2017-08-25 13:40] LABS: ANISOCYTOSIS 4+; PLATELET COMMENT DECREASED; ROULEAUX 2+; TOXIC GRANULATION SLIGHT; TOXIC VACUOLATION PRESENT
[2017-08-25 13:41] LABS: HYPOCHROMASIA 1+; OVALOCYTES 2+; POIKILOCYTOSIS 2+; POLYCHROMASIA 1+
[2017-08-25 14:07] LABS: ALANINE AMINOTRANSFERASE 19 U/L (9-52); ALBUMIN 2.7 g/dL (3.5-5.0); ALKALINE PHOSPHATASE 36 U/L (38-126); ANION GAP 7 (5-19); ASPARTATE AMINO TRANSFERASE 20 U/L (14-36); BILIRUBIN,DIRECT 0.2 mg/dL (0.0-0.4); BILIRUBIN,TOTAL 0.3 mg/dL (0.2-1.3); BLOOD UREA NITROGEN 6 mg/dL (7-20); CALCIUM 7.1 mg/dL (8.4-10.2); CARBON DIOXIDE 18 mmol/L (22-30); CHLORIDE 115 mmol/L (98-107); D-DIMER 1.41 ug/mL (0.00-0.50); GLUCOSE 106 mg/dL (75-110); SODIUM 140.2 mmol/L (137-145); TOTAL PROTEIN 4.8 g/dL (6.3-8.2)
[2017-08-25 14:10] LABS: INTERNATIONAL RATION (INR) 1.11
[2017-08-25 14:13] LABS: HEMATOCRIT 20.7 % (36.0-47.0); MEAN CORPUSCULAR HGB CONC 31.1 g/dL (32.0-36.0); RED BLOOD COUNT 2.92 10^6/uL (3.72-5.28); RED CELL DISTRIBUTION WIDTH 26.4 % (11.5-14.0)
[2017-08-25 14:19] LABS: POTASSIUM 4.2 mmol/L (3.6-5.0)
[2017-08-25 14:30] LABS: HEMOGLOBIN 6.4 g/dL (12.0-15.5); MEAN CORPUSCULAR VOLUME 71 fl (80-97); PLATELET COUNT 42 10^3/uL (150-450)
[2017-08-25 14:34] LABS: ABSOLUTE LYMPHOCYTES# (MANUAL) 0.2 10^3/uL (0.5-4.7); ABSOLUTE MONOCYTES # (MANUAL) 1.3 10^3/uL (0.1-1.4); ABSOLUTE NEUTROPHILS# (MANUAL) 10.2 10^3/uL (1.7-8.2); ANISOCYTOSIS 3+; BASOPHILS % (MANUAL) 1 % (0-2); EOSINOPHILS % (MANUAL) 0 % (0-6); HYPOCHROMASIA 1+; LYMPHOCYTES % (MANUAL) 2 % (13-45); MONOCYTES % (MANUAL) 11 % (3-13); OVALOCYTES 2+; PLATELET COMMENT DECREASED; POIKILOCYTOSIS 2+; POLYCHROMASIA 2+; ROULEAUX 2+; SEGMENTED NEUTROPHILS % (MAN) 86 % (42-78); TOTAL CELLS COUNTED 100; TOXIC GRANULATION SLIGHT
[2017-08-25 14:44] LABS: WHITE BLOOD COUNT 11.9 10^3/uL (4.0-10.5)
[2017-08-25] MEDS ORDERED: CALCIUM GLUCONATE 2,000 MG in DEXTROSE 5%-WATER 100 ML IV ONE ×2 (15:30→21:30)
[2017-08-25] MEDS ORDERED: NORMAL SALINE IV ONE (16:00)
[2017-08-25] MEDS ORDERED: CALCIUM GLUCONATE IV ONE (16:00)
[2017-08-25 16:39] LABS: INTERNATIONAL RATION (INR) 1.03; PROTHROMBIN TIME 14.3 SEC (11.4-15.4)
[2017-08-25 16:40] LABS: FIBRINOGEN 219 mg/dL (209-497); PARTIAL THROMBOPLASTIN TIME 28.1 SEC (23.5-35.8)
[2017-08-25 16:42] LABS: D-DIMER 1.76 ug/mL (0.00-0.50)
[2017-08-25 16:46] LABS: ABSOLUTE LYMPHOCYTES (AUTO) 1.1 10^3/uL (0.5-4.7); ABSOLUTE MONOCYTES (AUTO) 1.4 10^3/uL (0.1-1.4); ABSOLUTE NEUT (AUTO) 9.9 10^3/uL (1.7-8.2); BASOPHILS % (AUTO) 0.3 % (0-2); LYMPHOCYTES % (AUTO) 8.8 % (13-45); MEAN CORPUSCULAR HEMOGLOBIN 23.9 pg (27.0-33.4); MEAN CORPUSCULAR HGB CONC 32.1 g/dL (32.0-36.0); MEAN CORPUSCULAR VOLUME 74 fl (80-97); MONOCYTES % (AUTO) 11.3 % (3-13); RED BLOOD COUNT 3.63 10^6/uL (3.72-5.28); RED CELL DISTRIBUTION WIDTH 24.6 % (11.5-14.0); SEGMENTED NEUTROPHILS % (AUTO) 79.6 % (42-78); TOTAL CELLS COUNTED % (AUTO) 100 %; WHITE BLOOD COUNT 12.5 10^3/uL (4.0-10.5)
[2017-08-25 16:55] LABS: ALBUMIN 3.2 g/dL (3.5-5.0)
[2017-08-25 17:05] LABS: HEMOGLOBIN 8.7 g/dL (12.0-15.5)
[2017-08-25 17:09] LABS: PLATELET COUNT 58 10^3/uL (150-450)
[2017-08-25 17:14] LABS: ANISOCYTOSIS 3+; BURR CELLS SLIGHT; OVALOCYTES 1+; PLATELET COMMENT DECREASED; POIKILOCYTOSIS 1+
[2017-08-25 17:15] LABS: POLYCHROMASIA 1+
[2017-08-25] MEDS ORDERED: RINGERS SOLUTION,LACTATED 1,000 ML IV PRN (18:19)
[2017-08-25] MEDS ORDERED: MORPHINE SULFATE 10 MG/ML INJ IM PRN (18:20)
[2017-08-25] MEDS ORDERED: IBUPROFEN 800 MG TABLET PO PRN (18:21)
[2017-08-25] MEDS ORDERED: OXYCODONE-ACETAMINOPHEN 5-325 MG TABLET PO PRN (18:22)
[2017-08-25] MEDS ORDERED: MORPHINE SULFATE 10 MG/ML INJ IV PRN (21:00)
[2017-08-25 21:30] LABS: INTERNATIONAL RATION (INR) 0.95; PROTHROMBIN TIME 13.4 SEC (11.4-15.4)
[2017-08-25 21:31] LABS: FIBRINOGEN 262 mg/dL (209-497); PARTIAL THROMBOPLASTIN TIME 27.7 SEC (23.5-35.8)
[2017-08-25 21:33] LABS: D-DIMER 3.43 ug/mL (0.00-0.50); HEMATOCRIT 28.9 % (36.0-47.0); HEMOGLOBIN 9.5 g/dL (12.0-15.5); MEAN CORPUSCULAR HEMOGLOBIN 24.1 pg (27.0-33.4); MEAN CORPUSCULAR HGB CONC 32.7 g/dL (32.0-36.0); MEAN CORPUSCULAR VOLUME 74 fl (80-97); RED BLOOD COUNT 3.92 10^6/uL (3.72-5.28); RED CELL DISTRIBUTION WIDTH 24.3 % (11.5-14.0); WHITE BLOOD COUNT 13.2 10^3/uL (4.0-10.5)
[2017-08-25 21:36] LABS: PLATELET COUNT 63 10^3/uL (150-450)
[2017-08-26 02:20] LABS: HEMATOCRIT 27.8 % (36.0-47.0); HEMOGLOBIN 9.2 g/dL (12.0-15.5); MEAN CORPUSCULAR HEMOGLOBIN 24.5 pg (27.0-33.4); MEAN CORPUSCULAR HGB CONC 33.2 g/dL (32.0-36.0); MEAN CORPUSCULAR VOLUME 74 fl (80-97); RED BLOOD COUNT 3.77 10^6/uL (3.72-5.28); RED CELL DISTRIBUTION WIDTH 24.9 % (11.5-14.0); WHITE BLOOD COUNT 9.9 10^3/uL (4.0-10.5)
[2017-08-26 02:24] LABS: PLATELET COUNT 54 10^3/uL (150-450)
[2017-08-26 02:30] LABS: PARTIAL THROMBOPLASTIN TIME 28.5 SEC (23.5-35.8); PROTHROMBIN TIME 13.9 SEC (11.4-15.4)
[2017-08-26 02:31] LABS: FIBRINOGEN 249 mg/dL (209-497)
[2017-08-26 02:33] LABS: D-DIMER 3.68 ug/mL (0.00-0.50)
[2017-08-26 08:54] LABS: HEMATOCRIT 27.2 % (36.0-47.0); HEMOGLOBIN 8.9 g/dL (12.0-15.5); MEAN CORPUSCULAR HEMOGLOBIN 24.1 pg (27.0-33.4); MEAN CORPUSCULAR HGB CONC 32.7 g/dL (32.0-36.0); MEAN CORPUSCULAR VOLUME 74 fl (80-97); RED BLOOD COUNT 3.69 10^6/uL (3.72-5.28); RED CELL DISTRIBUTION WIDTH 24.6 % (11.5-14.0); WHITE BLOOD COUNT 8.6 10^3/uL (4.0-10.5)
[2017-08-26 09:03] LABS: ABSOLUTE RETICS # 0.082 10^6/uL (0.028-0.122); RETICULOCYTE COUNT (AUTO) 2.24 % (0.66-2.85)
[2017-08-26 09:06] LABS: INTERNATIONAL RATION (INR) 0.97; PROTHROMBIN TIME 13.6 SEC (11.4-15.4)
[2017-08-26 09:07] LABS: FIBRINOGEN 232 mg/dL (209-497); PARTIAL THROMBOPLASTIN TIME 29.3 SEC (23.5-35.8)
[2017-08-26 09:32] LABS: PLATELET COUNT 57 10^3/uL (150-450)
[2017-08-26 09:53] LABS: FOLATE 6.83 ng/mL (>2.76)
--- NOTE | 2017-08-26 10:25 | PDOC PROGRESS REPORT ---
Subjective Progress Note for:: 08/26/17 Subjective:: pt states she feels better Reason For Visit: NON VALUABLE IUP VAGINAL BLEEDING Physical Exam - Physical Exam Vital Signs: Temp Pulse Resp BP Pulse Ox 98.9 F 67 20 112/62 98 08/26/17 07:18 08/26/17 07:18 08/26/17 07:18 08/26/17 07:18 08/26/17 07:18 Intake & Output 08/25/17 08/26/17 08/27/17 06:59 06:59 06:59 Intake Total 4000 Output Total 1476 Balance 2524 Weight 74.2 kg General appearance: PRESENT: no acute distress GI/Abdominal exam: PRESENT: normal bowel sounds, soft - Gynecological Exam Labia: normal Urethra: normal Vagina: other - pale Cervix: normal, other - os open Cervix: normal Uterus: normal Result Laboratory Results: 08/26/17 08:20 08/25/17 08/25/17 08/25/17 14:00 16:19 16:19 WBC 11.9 H D 12.5 H RBC 2.92 L 3.63 L Hgb 6.4 L 8.7 L D Hct 20.7 L 27.0 L MCV 71 L D 74 L MCH 22.0 L 23.9 L MCHC 31.1 L 32.1 RDW 26.4 H 24.6 H Plt Count 42 L 58 L Seg Neutrophils % Not Reportable 79.6 H Lymphocytes % Not Reportable 8.8 L Monocytes % Not Reportable 11.3 Eosinophils % Not Reportable 0.0 Basophils % Not Reportable 0.3 Absolute Neutrophils Not Reportable 9.9 H Absolute Lymphocytes Not Reportable 1.1 Absolute Monocytes Not Reportable 1.4 Absolute Eosinophils Not Reportable 0.0 Absolute Basophils Not Reportable 0.0 Retic Count (auto) Absolute Retic Calcium 8.0 L Iron TIBC % Saturation Ferritin Albumin 3.2 L Vitamin B12 Folate 08/25/17 08/26/17 08/26/17 21:15 02:08 02:08 WBC 13.2 H 9.9 RBC 3.92 3.77 Hgb 9.5 L 9.2 L Hct 28.9 L 27.8 L MCV 74 L 74 L MCH 24.1 L 24.5 L MCHC 32.7 33.2 RDW 24.3 H 24.9 H Plt Count 63 L 54 L Seg Neutrophils % Lymphocytes % Monocytes % Eosinophils % Basophils % Absolute Neutrophils Absolute Lymphocytes Absolute Monocytes Absolute Eosinophils Absolute Basophils Retic Count (auto) Absolute Retic Calcium Iron 253.0 H TIBC 417 % Saturation 61 Ferritin 15.80 Albumin Vitamin B12 373.0 Folate 6.83 08/26/17 08/26/17 08:20 08:20 WBC 8.6 RBC 3.69 L Hgb 8.9 L Hct 27.2 L MCV 74 L MCH 24.1 L MCHC 32.7 RDW 24.6 H Plt Count 57 L Seg Neutrophils % Lymphocytes % Monocytes % Eosinophils % Basophils % Absolute Neutrophils Absolute Lymphocytes Absolute Monocytes Absolute Eosinophils Absolute Basophils Retic Count (auto) 2.24 Absolute Retic 0.082 Calcium Iron TIBC % Saturation Ferritin Albumin Vitamin B12 Folate Impressions: Obstetrics Ultrasound 08/25/17 08:42 IMPRESSION: IRREGULAR GESTATIONAL SAC IN THE ENDOMETRIAL CAVITY WITH SMALL POLE. NO CARDIAC ACTIVITY CONSISTENT WITH DEMISE. EGA 6 WEEK 2 DAY. Trimester of : First - 0 to [address] 08/25/17 10:02 IMPRESSION: NORMAL BRAIN CT WITHOUT CONTRAST. EVIDENCE OF ACUTE STROKE: NO. Assessment & Plan - Diagnosis (1) Hemorrhage Is this a current diagnosis for this admission?: Yes (2) Retained products of conception following Is this a current diagnosis for this admission?: Yes - Plan Summary Plan Summary: plan to discharge after being seen by hematology f/u 1 wk
[2017-08-26 10:54] LABS: D-DIMER 3.65 ug/mL (0.00-0.50)
--- NOTE | 2017-08-26 11:14 | PDOC CONSULTATION ---
Consultation Consult Date: 08/26/17 Consult reason:: Hematology consult was requested for anemia with thrombocytopenia. History of Present Illness Admission Date/PCP: 08/25/17 12:47 KAYY DELACRUZ MD History of Present Illness: TRINO WILLS is a 26 year old female presented with vaginal bleeding and fears of "having a stroke". Vaginal bleeding increased and noted to have several clots. sonogram revealed a retained 6 wk fetus that did not pass with her EAB in july most likely. With the increased vaginal bleeding patient became hypotensive and slightly tachycardic. Noted to be very anemic. Patient states that she was diagnosed with iron deficiency in the past and had received IV iron infusions in 09-14-2014. However, she had not recently returned to hematology or had her levels tested. Her baseline platelet count 07/22/2017 was 207. However, on admission, it was 88. It dropped to 35 and today is 54. She has received both pRBCs and platelet transfusion since her admission. She denies ever having a blood clot in the past. However, she is very concerned about this. Past Medical History Psychiatric Medical History: Denies: Depression Hematology: Reports: Anemia - iron deficiency Social History Lives with: Family Smoking Status: Unknown if Ever Smoked Frequency of Alcohol Use: None Hx Recreational Drug Use: No Hx Prescription Drug Abuse: No - Advance Directive Resuscitation Status: Full Code Family History Family History: Reviewed & Not Pertinent Parental Family History Reviewed: Yes Children Family History Reviewed: No Sibling(s) Family History Reviewed.: Yes Medication/Allergy Home Medications: Ibuprofen [Motrin 800 mg Tablet] 800 mg PO Q8HP PRN #60 tablet 08/26/17 Allergies/Adverse Reactions: No Known Allergies Allergy (Verified 08/25/17 09:10) Review of Systems Constitutional: ABSENT: fever(s), headache(s) Eyes: ABSENT: visual disturbances Ears: ABSENT: hearing changes Nose, Mouth, and Throat: ABSENT: sore throat Cardiovascular: ABSENT: chest pain Respiratory: ABSENT: dyspnea Gastrointestinal: PRESENT: abdominal pain Genitourinary: ABSENT: dysuria Musculoskeletal: PRESENT: back pain Integumentary: ABSENT: rash Neurological: PRESENT: dizziness. ABSENT: frequent falls Psychiatric: ABSENT: depression Hematologic/Lymphatic: PRESENT: as per HPI Physical Exam Vital Signs: Temp Pulse Resp BP Pulse Ox 98.9 F 67 20 112/62 98 08/26/17 07:18 08/26/17 07:18 08/26/17 07:18 08/26/17 07:18 08/26/17 07:18 Intake & Output 08/25/17 08/26/17 08/27/17 06:59 06:59 06:59 Intake Total 4000 Output Total 1476 Balance 2524 Weight 74.2 kg General appearance: PRESENT: no acute distress Exam: Overweight, 26 year old female. Lying in bed, no acute distress. Family at bedside. Head exam: PRESENT: atraumatic Eye exam: PRESENT: EOMI, PERRLA Mouth exam: PRESENT: moist Neck exam: ABSENT: lymphadenopathy, tenderness Respiratory exam: PRESENT: clear to auscultation abida, unlabored Cardiovascular exam: PRESENT: RRR Pulses: PRESENT: +1 pedal pulses bilateral GI/Abdominal exam: PRESENT: soft, tenderness Rectal exam: PRESENT: deferred Extremities exam: ABSENT: pedal edema Musculoskeletal exam: ABSENT: deformity Neurological exam: PRESENT: alert, awake, oriented to person, oriented to place Psychiatric exam: PRESENT: appropriate affect. ABSENT: agitated, anxious Skin exam: PRESENT: normal color Results Laboratory Results: 08/25/17 08/25/17 08/25/17 14:00 16:19 16:19 WBC 11.9 H D 12.5 H RBC 2.92 L 3.63 L Hgb 6.4 L 8.7 L D Hct 20.7 L 27.0 L MCV 71 L D 74 L MCH 22.0 L 23.9 L MCHC 31.1 L 32.1 RDW 26.4 H 24.6 H Plt Count 42 L 58 L Seg Neutrophils % Not Reportable 79.6 H Lymphocytes % Not Reportable 8.8 L Monocytes % Not Reportable 11.3 Eosinophils % Not Reportable 0.0 Basophils % Not Reportable 0.3 Absolute Neutrophils Not Reportable 9.9 H Absolute Lymphocytes Not Reportable 1.1 Absolute Monocytes Not Reportable 1.4 Absolute Eosinophils Not Reportable 0.0 Absolute Basophils Not Reportable 0.0 Calcium 8.0 L Albumin 3.2 L 08/25/17 08/26/17 21:15 02:08 WBC 13.2 H 9.9 RBC 3.92 3.77 Hgb 9.5 L 9.2 L Hct 28.9 L 27.8 L MCV 74 L 74 L MCH 24.1 L 24.5 L MCHC 32.7 33.2 RDW 24.3 H 24.9 H Plt Count 63 L 54 L Seg Neutrophils % Lymphocytes % Monocytes % Eosinophils % Basophils % Absolute Neutrophils Absolute Lymphocytes Absolute Monocytes Absolute Eosinophils Absolute Basophils Calcium Albumin Impressions: Obstetrics Ultrasound 08/25/17 08:42 IMPRESSION: IRREGULAR GESTATIONAL SAC IN THE ENDOMETRIAL CAVITY WITH SMALL POLE. NO CARDIAC ACTIVITY CONSISTENT WITH DEMISE. EGA 6 WEEK 2 DAY. Trimester of : First - [address] 08/25/17 10:02 IMPRESSION: NORMAL BRAIN CT WITHOUT CONTRAST. EVIDENCE OF ACUTE STROKE: NO. Assessment & Plan - Diagnosis (1) Hemorrhage Is this a current diagnosis for this admission?: Yes Plan: Apparently, she lost a significant amount of blood. However, this appears to have stopped. (2) Thrombocytopenia affecting Plan: Most likely, this is due to consumption. No evidence of TTP. Although ITP is also a possibility, this is less likely. I agree with transfusions to keep PLT >50 if actively bleeding. Otherwise, would continue to watch. Although risk of DVT is highest during the post- period, due to her acute bleeding, medical DVT prophylaxis should be held until blood counts stabilize and PLT>50 for 2-3 days in a row without transfusion support. (3) Anemia Qualifiers: Anemia type: iron deficiency Is this a current diagnosis for this admission?: Yes Plan: She has a history of iron deficiency anemia which may be greatly affecting this. Her iron stores remain low. She would benefit from further iron supplements either PO or IV as outpatient. Her B12 and Folate are normal. Of course, the acute bleeding has also contributed to the anemia. I agree with transfusion as well as the FFP. Her fibrinigen level was normal. However, would give further cryoprecipitate if Fibrinogen <200. - Plan Summary Plan Summary: Thank you for this consultation. Please call me with further questions or concerns. I will continue to follow her with you.
[2017-08-26 12:21] LABS: PATH REVIEW PATHOLOGIST REVIEWED
[2017-08-26 16:17] VITALS: BP 92/45
== END 2017-08-26 16:54 | disposition home or self-care (01) | DRG 770 ==
LOC: ER 08:18 → EH 12:47 → OBSVTOIN 12:47 → 3W 18:11
PROVIDERS: ADMIT Obstetrics & Gynecology; ATTEND Obstetrics & Gynecology
PROC: 10D17ZZ Extraction of Products of Conception, Retained, Via Natural or Artificial Opening (ICD-10-PCS; principal; 2017-08-25 11:45)
DX: O03.1 Delayed or excessive hemorrhage following incomplete spontaneous abortion (principal); Z3A.08 8 weeks gestation of pregnancy; O99.011 Anemia complicating pregnancy, first trimester; D62 Acute posthemorrhagic anemia
CPT/HCPCS: 36415; 36430; 70450; 76801; 80053; 81001; 82040; 82310; 82607; 82728; 82746; 82962; 83540; 83550; 83880; 84466; 84702; 85025; 85027; 85045; 85362; 85379; 85384; 85610; 85730; 86850; 86870; 86900; 86901; 86920; 86922; 88305; 940; 96360; 99285; J0610; J0690; J2250; J2270; J2590; J2704; J2790; J3010; J3490; J7030; J7050; J7120; P9016; P9017; P9035; S0028

== ENCOUNTER 2018-02-03 09:36 | Emergency (ER) | payer SELFPAY ==
[2018-02-03 09:52] VITALS: BP 116/71
--- NOTE | 2018-02-03 10:32 | ER Document Report ---
HPI - HPI Patient complains to provider of: Low back pain Onset: Other - 2 weeks Onset/Duration: Persistent Quality of pain: Achy Pain Level: 3 Context: Patient presents complaining of low back pain for the past 2 weeks. Patient denies any urinary retention or incontinence. 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 Patient denies any radiculopathy or paresthesia. Patient denies any fever. Associated Symptoms: Other - Low back pain. denies: Fever, Headache Exacerbated by: Movement, Walking Relieved by: Denies Similar symptoms previously: No Recently seen / treated by doctor: No - ROS ROS below otherwise negative: Yes Systems Reviewed and Negative: Yes All other systems reviewed and negative - CONSTITUTIONAL Constitutional: DENIES: Fever - NEURO Neurology: DENIES: Headache, Weakness - URINARY Urinary: DENIES: Dysuria, Urgency, Frequency - REPRODUCTIVE Reproductive: DENIES: : - MUSCULOSKELETAL Musculoskeletal: REPORTS: Back Pain. DENIES: Extremity pain - DERM Skin Color: Normal Skin Problems: None Past Medical History - General Information source: Patient - Social History Smoking Status: Never Smoker Frequency of alcohol use: None Drug Abuse: None Occupation: help desk assistant Family History: Reviewed & Not Pertinent Patient has suicidal ideation: No Patient has homicidal ideation: No - Medical History Medical History: Negative Renal/ Medical History: Denies: Hx Peritoneal Dialysis Psychiatric Medical History: Reports: Hx Anxiety Denies: Hx Depression Past Surgical History: Reports: Hx Gynecologic Surgery - D&C - Immunizations Hx Diphtheria, Pertussis, Tetanus Vaccination: Yes Vertical Provider Document - CONSTITUTIONAL Agree With Documented VS: Yes Exam Limitations: No Limitations General Appearance: WD/WN, No Apparent Distress Notes: PHYSICAL EXAMINATION: GENERAL: Well-appearing, well-nourished and in no acute distress. HEAD: Atraumatic, normocephalic. EYES: sclera clear, anicteric, conjunctiva are normal. ENT: nares patent, Moist mucous membranes. NECK: Normal range of motion, supple no lymphadenopathy LUNGS: respirations unlabored HEART: Regular rate and rhythm without murmurs EXTREMITIES: Normal range of motion, no pitting or edema. No cyanosis. Gait normal, pt ambulates without difficulty BACK: Lower lumbar paraspinal tenderness, lumbar midline tenderness, no deformities or step-offs. No CVA tenderness. NEUROLOGICAL: Cranial nerves grossly intact. Normal speech, normal gait. No saddle anesthesia. No footdrop PSYCH: Normal mood, normal affect. SKIN: Warm, Dry, normal turgor, no rashes or lesions noted. - INFECTION CONTROL TRAVEL OUTSIDE OF THE [place] IN LAST 30 DAYS: No Course - Re-evaluation Re-evalutation: 02/03/18 10:32 The patient presents with low back pain without signs of spinal cord compression , cauda equina syndrome, infection, aneurysm, or other serious etiology. The patient is neurologically intact. Given the extremely risk of these diagnoses further testing and evaluation for these possibilities does not appear to be indicated at this time. Patient has been instructed to return if the symptoms worsen or change in any way. - Vital Signs Vital signs: Temp Pulse Resp BP Pulse Ox 98.9 F 95 16 116/71 96 02/03/18 09:49 02/03/18 09:49 02/03/18 09:49 02/03/18 09:49 02/03/18 09:49 Discharge - Discharge Clinical Impression: Low back pain Qualifiers: Chronicity: acute Back pain laterality: bilateral Sciatica presence: unspecified whether sciatica present Qualified Code(s): M54.5 - Low back pain Condition: Stable Disposition: HOME, SELF-CARE Additional Instructions: Return immediately for any new or worsening symptoms Followup with your primary care provider, call tomorrow to make a followup appointment LOW BACK PAIN: Three out of every four people will have an episode of disabling back pain during their lifetime. Most commonly the pain is due to straining of the muscles and ligaments in the low back. Usual treatment includes: (1) Rest on a firm surface. Avoid lying on your stomach. (2) Ice pack the painful area. After a few days, gentle heat may be used intermittently to relax the area, or ice packs can be continued. (3) Medication may be needed -- muscle relaxers and antiinflammatory medicines are commonly used. (4) As the back improves, exercises are prescribed to strengthen the back and abdominal muscles. Your doctor will advise you on the proper care for your back at each stage in your recovery. You may be better in a few days -- or healing may take several weeks. If new symptoms of a "herniated disc" (radiation of pain, numbness, or tingling down the back of the leg or weakness in the leg) occur, you should be re-examined. Further testing may be necessary. ORAL NARCOTIC MEDICATION: You have been given a prescription for pain control. This medication is a narcotic. It's best taken with food, as nausea can result if taken on an empty stomach. Don't operate machinery or drive within six hours of taking this medication. Do not combine this medicine with alcohol, or with any medication which can cause sedation (such as cold tablets or sleeping pills) unless you get permission from the physician. Narcotics tend to cause constipation. If possible, drink plenty of fluids and eat a diet high in fiber and fruits. Please be aware that prescription narcotics also have the potential for abuse. People become addicted to these medications because of the general sense of wellbeing that they induce. This feeling along with a significant reduction in tension, anxiety, and aggression provides a stimulating seductive quality to these drugs. Once your pain is under control, we encourage you to discard your unused narcotics. MUSCLE RELAXERS: Muscle relaxing medications are usually prescribed for acute muscle spasm or injury to the neck and back. They are often combined with antiinflammatory pain medication for increased relief. You may stop the muscle relaxer when the pain and stiffness have improved. Start the medication again if spasms recur. Muscle relaxers may cause drowsiness, especially with the first dose. Do not operate machinery or drive while under the effects of the medication. Most muscle relaxers last up to 24 hours. Do not combine the medication with alcohol. ICE PACKS: Apply ice packs frequently against the painful area. Many different schedules are recommended, such as "20 minutes on, 20 minutes off" or "one hour ice, two hours rest." If you need to work, you may need to go longer between ice treatments. You should plan to have the area ice packed AT LEAST one fourth of the time. The ice should be applied over the wrap, tape, or splint, or over a layer of cloth -- not directly against the skin. Some ice bags have a built-in cloth and can be put directly on the skin. WARM PACKS: After approximately two days, apply gentle heat (such as a heating pad or hot water bottle) for about 20 to 30 minutes about every two hours -- at least four times daily. Warmth and elevation will help you make a more rapid recovery , and will ease the pain considerably. Do not use HOT heat, and never apply heat for longer than 30 minutes. The continuous heat can invisibly damage skin and muscles -- even when no burn is seen on the surface. Damaged muscles can make you MORE sore. FOLLOW-UP CARE: If you have been referred to a physician for follow-up care, call the physician s office for an appointment as you were instructed or within the next two days. If you experience worsening or a significant change in your symptoms, notify the physician immediately or return to the Emergency Department at any time for re-evaluation. Prescriptions: Methocarbamol [Robaxin 500 Mg Tablet] 500 mg PO QID PRN #24 tablet PRN Reason: Naproxen [Naprosyn 250 Nmg Tablet] 1 tab PO BID #14 tablet Forms: Return to Work Referrals: KAYY DELACRUZ MD [Primary Care Provider] - Follow up as needed
== END 2018-02-03 11:05 | disposition home or self-care (01) ==
LOC: ER 09:36
DX: M54.5 Low back pain (principal)
CPT/HCPCS: 99283

== ENCOUNTER 2018-07-26 12:33 | Emergency (ER) | payer SELFPAY ==
--- NOTE | 2018-07-26 14:22 | ER Document Report ---
ED GI/ - General Chief Complaint: Back Pain Stated Complaint: BACK PAIN/VAGINAL BLEEDING Time Seen by Provider: 07/26/18 13:59 Mode of Arrival: Ambulatory Information source: Patient Notes: Patient's 27-year-old female comes emergency room complaining of pelvic cramping with some light vaginal bleeding. Patient states that this cramping started approximately 2 days ago has been pretty consistent since then. It is greater in the left pelvic area than in the right pelvic area. But it does span across the lower abdomen. Last menstrual period was on 07/12/2018 which was her normal period. She denies having any vaginal discharge. She does state that this feels similar to her. Cramping but more intense. She denies being under any recent stressors. Patient was seen here approximately 1 year ago where she was found to be iron deficient anemic and also status post the pill at 8weeks where she was admitted and transfused. Patient states that that has since been corrected but she has not been checked for a long time to see if her hemoglobin is holding. She does admit to being more tired lately. Patient really denies any type of back pain is just the cramping hurts all over. TRAVEL OUTSIDE OF THE [place] IN LAST 30 DAYS: No - HPI Patient complains to provider of: Pelvic pain, Vaginal bleeding. No: Dysuria, Hematuria, Vaginal discharge Onset: Other - 2 days ago Timing/Duration: Gradual, Worse Quality of pain: Achy, Sharp Severity at maximum: Moderate Severity in ED: Moderate Pain Level: 3 Location: Suprapubic, Pelvis Adult Front & Back Diagram: 1 - Area of discomfort with the greatest being on the left lower pelvic area Vaginal bleeding (Compared to normal period): [employer] LMP: 07/12/2018 Sexual history: Active Associated symptoms: denies: Constipation Exacerbated by: Denies Relieved by: Denies Recently seen / treated by doctor: No - Related Data Allergies/Adverse Reactions: No Known Allergies Allergy (Verified 07/26/18 12:37) Past Medical History - General Information source: Patient - Social History Smoking Status: Never Smoker Cigarette use (# per day): No Chew tobacco use (# tins/day): No Smoking Education Provided: No Frequency of alcohol use: Occasional Drug Abuse: None Lives with: Family Family History: Reviewed & Not Pertinent Patient has suicidal ideation: No Patient has homicidal ideation: No Renal/ Medical History: Denies: Hx Peritoneal Dialysis Psychiatric Medical History: Reports: Hx Anxiety Denies: Hx Depression Past Surgical History: Reports: Hx Gynecologic Surgery - D&C - Immunizations Hx Diphtheria, Pertussis, Tetanus Vaccination: Yes Review of Systems - Review of Systems Constitutional: No symptoms reported EENT: No symptoms reported Cardiovascular: No symptoms reported Respiratory: No symptoms reported Gastrointestinal: No symptoms reported Genitourinary: No symptoms reported Female Genitourinary: See HPI, Vaginal bleeding Musculoskeletal: No symptoms reported Skin: No symptoms reported Hematologic/Lymphatic: No symptoms reported Neurological/Psychological: No symptoms reported -: Yes All other systems reviewed and negative Physical Exam - Vital signs Vitals: Temp Pulse Resp BP Pulse Ox 98.8 F 74 16 114/60 100 07/26/18 12:39 07/26/18 12:39 07/26/18 12:39 07/26/18 12:39 07/26/18 12:39 Interpretation: Normal - Notes Notes: PHYSICAL EXAMINATION: GENERAL: Patient is a well-nourished well-developed 27-year-old female who is in no apparent distress on physical exam this afternoon. HEAD: Atraumatic, normocephalic. EYES: Pupils equal round and reactive to light, extraocular movements intact, conjunctiva are normal. ENT: Nares patent, oropharynx clear without exudates. Moist mucous membranes. NECK: Normal range of motion, supple without lymphadenopathy LUNGS: Breath sounds clear to auscultation bilaterally and equal. No wheezes rales or rhonchi. HEART: Regular rate and rhythm without murmurs ABDOMEN: Soft, nontender, nondistended abdomen. No guarding, no rebound. No masses appreciated. Female examination showed that external genitalia are normal in appearance. There was no dried blood near or around the introitus. Vaginal tract was also normal-appearing with moist abdullahi with no exudate noted there. The cervix was seen and not open there was no blood coming from the cervix it was some discharge surrounding the posterior portion of the vaginal vault. It did appear to be a little darkish red tinge to it. But nothing current that I can find. Patient has no CMT tenderness. Bimanual exam showed that there was tenderness on the left-hand side but no overt mass was felt. Musculoskeletal: Normal range of motion, no pitting or edema. No cyanosis. NEUROLOGICAL: Normal speech, normal gait. Normal sensory, motor exams PSYCH: Normal mood, flat affect SKIN: Warm, Dry, normal turgor, no rashes or lesions noted. Course - Re-evaluation Re-evalutation: 07/26/18 17:33 Patient course of stay was basically uneventful. All of her labs came back relatively good with the exception of she had some teardrop cells in her blood. She is seeing an oncologist from the time she was seen here last year but has not followed up in quite a while. I have instilled in her that this is someth ing he does not need to be dropped and that she needs to follow-up. The ultrasound showed no gynecological region for her to be cramping as well as urine was not 100% clean catch but I do not believe it is needing any antibiotics at this time. Her vaginal exam did not show any bleeding in the area and all of the swabs were negative. We are going to go ahead and send patient home with some gastrointestinal type of a yeast anti-spasmodic and have her follow-up with the [facility]. - Vital Signs Vital signs: Temp Pulse Resp BP Pulse Ox 98.6 F 70 16 116/60 100 07/26/18 17:45 07/26/18 17:45 07/26/18 17:45 07/26/18 17:45 07/26/18 17:45 - Laboratory Result Diagrams: 07/26/18 14:45 07/26/18 14:45 Laboratory results interpreted by me: 07/26/18 07/26/18 13:35 14:45 Hgb 9.2 L Hct 30.1 L MCV 62 L MCH 18.9 L MCHC 30.5 L RDW 22.0 H Urine Urobilinogen 4.0 H Ur Leukocyte Esterase SMALL H Discharge - Discharge Clinical Impression: Pelvic pain, Abdominal cramping Condition: Stable Disposition: HOME, SELF-CARE Instructions: Abdominal Pain ([facility]), Pelvic Pain ([facility]) Additional Instructions: PELVIC PAIN: There are many causes of pain in the pelvic area. The cause could be the tubes, ovaries, uterus, intestines, appendix, pelvic muscles and connective tissue, or the urinary tract. The cause of your pelvic pain is not clear. However, it seems safe to treat you outside the hospital. If the pain sounds like a temporary problem, we sometimes wait to see if it goes away. Other patients may need additional tests, such as pelvic ultrasound or cultures. Conditions may change. Call us or come back for reexamination if any prob lems occur, such as: (1) Pain that becomes more severe, steady, or becomes concentrated in one spec ific area. Also, pain that is more severe with movement or coughing. (2) Vomiting that persists or becomes more frequent. (3) Blood in the vomitus, urine, or bowel movements. Blood in the stool may have a tarry or black appearance. (4) Shaking chills or fever greater than 100 degrees. (5) The abdomen becomes more distended or swollen. (6) Bowel movements cease. (7) Heavy vaginal bleeding. FOLLOW-UP CARE: If you have been referred to a physician for follow-up care, call the physician s office for an appointment as you were instructed or within the next two days. If you experience worsening or a significant change in your symptoms, notify the physician immediately or return to the Emergency Department at any time for re-evaluation. Home and rest. Medication as prescribed. As we discussed I cannot find any cause for this gynecological gallo. Abdominal eyes your labs look good at this point I would stick with clear liquids for 24 hours and then advance as tolerated. On the other point we discussed about your blood work your hemoglobin is 9.2 it is not normal but is not to the point where we would initiate a transfusion. It is important however that you have some abnormal cells still in your blood and you should follow-up with your oncologist that you establish with about a year ago when they found you to have this iron deficiency anemia. This is something that must be addressed in should not linger. I have given you a handout above that if you spike a fever or have nausea vomiting or the symptoms get worse return to ER for recheck. I have given you a copy of your lab work and your ultrasound so that when you go see your physician you can handed to them. Prescriptions: Hyoscyamine Sulfate [Levsin 0.125 Tablet] 0.125 mg PO QID PRN #20 tablet PRN Reason: Forms: Return to Work Referrals: KAYY DELACRUZ MD [ACTIVE STAFF] - Follow up as needed
[2018-07-26 14:56] LABS: APPEARANCE,URINE TURBID; BILIRUBIN,URINE NEGATIVE (NEGATIVE); COLOR,URINE YELLOW; GLUCOSE, URINE NEGATIVE (NEGATIVE); KETONES,URINE NEGATIVE (NEGATIVE); LEUKOCYTE ESTERASE,URINE SMALL (NEGATIVE); NITRITE,URINE NEGATIVE (NEGATIVE); PROTEIN,URINE NEGATIVE (NEGATIVE); URINE SPECIFIC GRAVITY 1.027
[2018-07-26 15:14] LABS: ALANINE AMINOTRANSFERASE 22 U/L (9-52); ALBUMIN 4.3 g/dL (3.5-5.0); ALKALINE PHOSPHATASE 61 U/L (38-126); ANION GAP 7 (5-19); ASPARTATE AMINO TRANSFERASE 22 U/L (14-36); BILIRUBIN,DIRECT 0.2 mg/dL (0.0-0.4); BILIRUBIN,TOTAL 0.5 mg/dL (0.2-1.3); BLOOD UREA NITROGEN 12 mg/dL (7-20); CALCIUM 9.4 mg/dL (8.4-10.2); CARBON DIOXIDE 28 mmol/L (22-30); CHLORIDE 107 mmol/L (98-107); GLUCOSE 88 mg/dL (75-110); POTASSIUM 4.2 mmol/L (3.6-5.0); SODIUM 141.8 mmol/L (137-145); TOTAL PROTEIN 7.2 g/dL (6.3-8.2)
[2018-07-26 15:26] LABS: T.VAGINALIS (WET MOUNT) NO TRICHOMONAS SEEN; WBCS (WET MOUNT) RARE WBCS SEEN; YEAST (WET MOUNT) NO YEAST SEEN
[2018-07-26 15:34] LABS: ABSOLUTE BASOPHILS # (AUTO) 0.1 10^3/uL (0.0-0.2); ABSOLUTE LYMPHOCYTES (AUTO) 1.8 10^3/uL (0.5-4.7); ABSOLUTE MONOCYTES (AUTO) 0.6 10^3/uL (0.1-1.4); ABSOLUTE NEUT (AUTO) 3.3 10^3/uL (1.7-8.2); EOSINOPHILS % (AUTO) 0.1 % (0-6); HEMATOCRIT 30.1 % (36.0-47.0); HEMOGLOBIN 9.2 g/dL (12.0-15.5); LYMPHOCYTES % (AUTO) 30.9 % (13-45); MEAN CORPUSCULAR HEMOGLOBIN 18.9 pg (27.0-33.4); MEAN CORPUSCULAR HGB CONC 30.5 g/dL (32.0-36.0); MONOCYTES % (AUTO) 11.1 % (3-13); PLATELET COUNT 259 10^3/uL (150-450); RED BLOOD COUNT 4.84 10^6/uL (3.72-5.28); SEGMENTED NEUTROPHILS % (AUTO) 56.9 % (42-78); TOTAL CELLS COUNTED % (AUTO) 100 %; WHITE BLOOD COUNT 5.7 10^3/uL (4.0-10.5)
[2018-07-26 15:47] LABS: MEAN CORPUSCULAR VOLUME 62 fl (80-97)
[2018-07-26 15:53] LABS: ANISOCYTOSIS 3+; HYPOCHROMASIA 1+; POIKILOCYTOSIS SLIGHT; POLYCHROMASIA SLIGHT
[2018-07-26 15:54] LABS: OVALOCYTES 1+; PLATELET COMMENT ADEQUATE; PLATELET LARGE PRESENT; TEAR DROP CELLS SLIGHT
--- NOTE | 2018-07-26 16:49 | RADIOLOGY REPORT (SQ) ---
EXAM DESCRIPTION: U/S NON OB PEL TV W/DOPPLER COMPLETED DATE/TIME: 07/26/2018 4:31 pm REASON FOR STUDY: Unknown Preg status as yet/if pg need need to rule out torsion LMP 07/12/2018 COMPARISON: None. TECHNIQUE: Dynamic and static grayscale images acquired of the pelvis via transvaginal approach and recorded on PACS. Additional selected color Doppler and spectral images recorded. LIMITATIONS: None. FINDINGS: UTERUS: Contour normal. No mass. ENDOMETRIAL STRIPE: No focal or generalized thickening. No masses. CERVIX: No nabothian cysts. RIGHT OVARY AND DOPPLER: Normal size. No worrisome masses. Normal arterial vascular flow without evid ence for torsion. LEFT OVARY AND DOPPLER: Normal size. No worrisome masses. Normal arterial vascular flow without evide nce for torsion. FREE FLUID: None noted. OTHER: No other significant finding. MEASUREMENTS: UTERUS: 8.7 x 5.9 x 4.4 cm. ENDOMETRIAL STRIPE: 3.3 mm. RIGHT OVARY: 4.1 x 1.8 x 2 cm. LEFT OVARY: 5.2 x 2.4 x 2.4 cm. IMPRESSION: NORMAL TRANSVAGINAL PELVIC ULTRASOUND. TECHNICAL DOCUMENTATION: JOB ID: [id number] [employer]- All Rights Reserved Rev Reading location - IP/workstation name: [email or web address]
[2018-07-26 16:52] LABS: CHLAM PCR NOT DETECTED (NOT DETECT); GON PCR NOT DETECTED (NOT DETECT)
[2018-07-26] MEDS ORDERED: DICYCLOMINE HCL 20 MG TABLET PO ONE (17:28)
[2018-07-26 17:58] VITALS: BP 116/60
== END 2018-07-26 17:50 | disposition home or self-care (01) ==
LOC: ER 12:33
DX: R10.2 Pelvic and perineal pain (principal); R10.30 Lower abdominal pain, unspecified; N93.9 Abnormal uterine and vaginal bleeding, unspecified
CPT/HCPCS: 99284; 36415; 87210; 85025; 81025; 80053; 81001; 87491; 87591; 76830; 93976; J3490

== ENCOUNTER 2019-06-26 11:40 | Observation (INO) | payer SELFPAY ==
--- NOTE | 2019-06-26 11:54 | ER Document Report ---
ED Medical Screen (RME) - General Chief Complaint: Nausea/Vomiting Stated Complaint: NAUSEA/VOMITING/WEAKNESS Time Seen by Provider: 06/26/19 11:49 Mode of Arrival: Ambulatory Information source: Patient Notes: 28-year-old female presented to ED for complaint of nausea and vomiting x3 days. She states she is having liquid stools but has not had any real stools due to not been able to eat. She states she does have lower abdominal pain. She states she is never had anything like this before. Last menstrual cycle was April 16-. She states she has having urinary frequency no urgency pain or burning and she does clear thick white discharge occasionally but not on her underwear though. Says she does have 2 children she states she is not on any control and is sexually active. Abdomen is soft active bowel sounds with tenderness to bilateral lower abdomen. I have greeted and performed a rapid initial assessment of this patient. A comprehensive ED assessment and evaluation of the patient, analysis of test results and completion of medical decision making process will be conducted by an additional ED providers. TRAVEL OUTSIDE OF THE [place] IN LAST 30 DAYS: No - Related Data Allergies/Adverse Reactions: No Known Allergies Allergy (Verified 07/26/18 12:37) Past Medical History Renal/ Medical History: Denies: Hx Peritoneal Dialysis Psychiatric Medical History: Reports: Hx Anxiety Denies: Hx Depression Past Surgical History: Reports: Hx Gynecologic Surgery - D&C - Immunizations Hx Diphtheria, Pertussis, Tetanus Vaccination: Yes
[2019-06-26 12:16] LABS: ABSOLUTE BASOPHILS # (AUTO) 0.1 10^3/uL (0.0-0.2); ABSOLUTE LYMPHOCYTES (AUTO) 1.4 10^3/uL (0.5-4.7); ABSOLUTE MONOCYTES (AUTO) 0.6 10^3/uL (0.1-1.4); ABSOLUTE NEUT (AUTO) 5.3 10^3/uL (1.7-8.2); BASOPHILS % (AUTO) 0.8 % (0-2); EOSINOPHILS % (AUTO) 0.2 % (0-6); HEMATOCRIT 32.5 % (36.0-47.0); LYMPHOCYTES % (AUTO) 19.4 % (13-45); MEAN CORPUSCULAR HEMOGLOBIN 19.5 pg (27.0-33.4); MEAN CORPUSCULAR HGB CONC 30.8 g/dL (32.0-36.0); MONOCYTES % (AUTO) 8.5 % (3-13); PLATELET COUNT 336 10^3/uL (150-450); RED BLOOD COUNT 5.13 10^6/uL (3.72-5.28); RED CELL DISTRIBUTION WIDTH 20.4 % (11.5-14.0); SEGMENTED NEUTROPHILS % (AUTO) 71.1 % (42-78); TOTAL CELLS COUNTED % (AUTO) 100 %; WHITE BLOOD COUNT 7.4 10^3/uL (4.0-10.5)
[2019-06-26] MEDS ORDERED: ONDANSETRON HCL INJ/PF 4 MG/2 ML SDV IV ONE (12:26)
[2019-06-26] MEDS ORDERED: NORMAL SALINE 1000 ML 1,000 ML IV ONE ×2 (12:26→15:27)
[2019-06-26 12:29] LABS: APPEARANCE,URINE SLIGHTLY-CLOUDY; BILIRUBIN,URINE NEGATIVE (NEGATIVE); COLOR,URINE YELLOW; GLUCOSE, URINE NEGATIVE (NEGATIVE); KETONES,URINE 80 mg/dL (NEGATIVE); PROTEIN,URINE 30 mg/dL (NEGATIVE); URINE SPECIFIC GRAVITY 1.024
[2019-06-26 12:38] LABS: ALBUMIN 4.5 g/dL (3.5-5.0); ALKALINE PHOSPHATASE 70 U/L (38-126); ANION GAP 12 (5-19); ASPARTATE AMINO TRANSFERASE 21 U/L (14-36); BILIRUBIN,DIRECT 0.1 mg/dL (0.0-0.4); BILIRUBIN,TOTAL 0.5 mg/dL (0.2-1.3); BLOOD UREA NITROGEN 6 mg/dL (7-20); CALCIUM 9.4 mg/dL (8.4-10.2); CARBON DIOXIDE 23 mmol/L (22-30); CHLORIDE 105 mmol/L (98-107); GLUCOSE 83 mg/dL (75-110); POTASSIUM 4.2 mmol/L (3.6-5.0); TOTAL PROTEIN 7.6 g/dL (6.3-8.2)
[2019-06-26 12:39] LABS: MEAN CORPUSCULAR VOLUME 63 fl (80-97)
--- NOTE | 2019-06-26 12:42 | ER Document Report ---
ED General - General Chief Complaint: Nausea/Vomiting Stated Complaint: NAUSEA/VOMITING/WEAKNESS Time Seen by Provider: 06/26/19 11:49 Mode of Arrival: Ambulatory Notes: 28-year-old female presents for lower abdominal/pelvic pain, nausea/vomiting, diarrhea for 3 days. Patient states she also has been having urinary u rgency/frequency and some white vaginal discharge. Patient denies dysuria, fevers, blood in emesis or stool. Patient is unsure if she is . Last menstrual period was in April. TRAVEL OUTSIDE OF THE [place] IN LAST 30 DAYS: No - Related Data Allergies/Adverse Reactions: No Known Allergies Allergy (Verified 07/26/18 12:37) Home Medications: denies Past Medical History - General Information source: Patient - Social History Smoking Status: Never Smoker Chew tobacco use (# tins/day): No Frequency of alcohol use: None Drug Abuse: None Family History: Reviewed & Not Pertinent Patient has suicidal ideation: No Patient has homicidal ideation: No Renal/ Medical History: Denies: Hx Peritoneal Dialysis Psychiatric Medical History: Reports: Hx Anxiety Denies: Hx Depression Past Surgical History: Reports: Hx Gynecologic Surgery - D&C - Immunizations Hx Diphtheria, Pertussis, Tetanus Vaccination: Yes Review of Systems - Review of Systems Notes: Constitutional: Negative for fever. HENT: Negative for sore throat. Eyes: Negative for visual changes. Cardiovascular: Negative for chest pain. Respiratory: Negative for shortness of breath. Gastrointestinal: Positive for lower abdominal pain, nausea, vomiting and diarrhea. Genitourinary: Positive for urgency/frequency and vaginal discharge. Negative for dysuria. Musculoskeletal: Negative for back pain. Skin: Negative for rash. Neurological: Negative for headaches, weakness or numbness. 10 point ROS negative except as marked above and in HPI. Physical Exam - Vital signs Vitals: Temp Pulse Resp BP Pulse Ox 98.3 F 77 16 102/63 97 06/26/19 11:48 06/26/19 11:48 06/26/19 11:48 06/26/19 11:48 06/26/19 11:48 - Notes Notes: Program Lead: Greyson PCT GENERAL: Well-appearing, well-nourished and in no acute distress. HEAD: Atraumatic, normocephalic. EYES: Extraocular movements intact, sclera anicteric, conjunctiva are normal. NECK: Normal range of motion, supple without lymphadenopathy or JVD. LUNGS: Breath sounds clear to auscultation bilaterally and equal. No wheezes rales or rhonchi. HEART: Regular rate and rhythm without murmurs, rubs or gallops. ABDOMEN: Soft, nontender. No guarding, no rebound. No masses appreciated. : Mild suprapubic tenderness. Mild white vaginal discharge. No cervical motion tenderness or adnexal tenderness bilaterally. EXTREMITIES: Normal range of motion, no pitting or edema. No clubbing or cyanosis. NEUROLOGICAL: Cranial nerves II through XII grossly intact. Normal speech, normal gait. PSYCH: Normal mood, normal affect. SKIN: Warm, Dry, normal turgor, no rashes or lesions noted. Course - Re-evaluation Re-evalutation: 06/26/19 Pelvic exam without cervical motion tenderness or focal adnexal tenderness. 06/26/19 15:22 Radiologist called due to US results. States small pole with solid lesion of approx 1.5 cm in endometrial canal concerning for trophoblastic/mole. Discussed US results and pt with Dr. Love, obgyn, transportation equipment painter. Dr. Love states she will look at ultrasound. 06/26/19 15:27 Discussed results with pt and currently awaiting obgyn to review US. 06/26/19 16:[address] Love's note. Pt to be admitted for molar and D&C. - Vital Signs Vital signs: Temp Pulse Resp BP Pulse Ox 98.3 F 77 16 102/63 97 06/26/19 11:48 06/26/19 11:48 06/26/19 11:48 06/26/19 11:48 06/26/19 11:48 - Laboratory Result Diagrams: 06/26/19 12:06 06/26/19 12:06 Laboratory results interpreted by me: 06/26/19 06/26/19 06/26/19 11:59 12:06 12:06 Hgb 10.0 L Hct 32.5 L MCV 63 L MCH 19.5 L MCHC 30.8 L RDW 20.4 H BUN 6 L Creatinine 0.48 L Beta HCG, Quant 91384.00 H Urine Protein 30 H Urine Ketones 80 H Urine Nitrite (Reflex) POSITIVE H Urine Urobilinogen 4.0 H Leukocyte Esterase Rfl SMALL H Discharge - Discharge Clinical Impression: Molar Condition: Stable Disposition: ADMITTED INPATIENT Admitting Provider: Kate, obgyn Unit Admitted: OR
[2019-06-26 12:45] LABS: ANISOCYTOSIS 3+; HYPOCHROMASIA 2+; OVALOCYTES 2+; PLATELET COMMENT ADEQUATE; POIKILOCYTOSIS 2+; POLYCHROMASIA SLIGHT
[2019-06-26] MEDS ORDERED: SUCCINYLCHOLINE CHLORIDE INJ 200 MG/10 ML VIAL ONE (12:47)
[2019-06-26 13:35] LABS: RBCS (WET MOUNT) NO RBCS SEEN; T.VAGINALIS (WET MOUNT) TRICHOMONAS SEEN; WBCS (WET MOUNT) 1+ WBCS SEEN; YEAST (WET MOUNT) NO YEAST SEEN
[2019-06-26 13:36] LABS: EPITHELIALS (WET MOUNT) 3+ EPITHELIALS SEEN
--- NOTE | 2019-06-26 15:36 | RADIOLOGY REPORT (SQ) ---
EXAM DESCRIPTION: U/S OB TRANSVAGINAL W/O DOP COMPLETED DATE/TIME: 06/26/2019 1:42 pm REASON FOR STUDY: pelvic pain COMPARISON: 08/25/2017 TECHNIQUE: Transvaginal static and realtime grayscale images acquired of the pelvis. Additional carol cted spectral and color Doppler images recorded. All images stored on PACs. CLINICAL AGE: UNKNOWN BHC,505 LIMITATIONS: None. FINDINGS: UTERUS: There is a intrauterine gestational sac with questionable pole visualized m easuring approximately 1.6 mm with flicker noted on M-mode modality suggestive of cardiac activity. There is a hyperechoic solid-appearing mass within the gestational sac measuring approximately 1.1 x 1.4 x 1.4 cm. There is an additional hypoechoic heterogeneous collection along the gestational sac measuring 1.3 x 1.2 x 1.0 cm suggestive of a subchorionic hemorrhage. RIGHT ADNEXA: Unremarkable measuring 3.4 x 3.5 x 2.9 cm. 2.2 cm functional follicle.No adnexal free fluid.No adnexal masses. LEFT ADNEXA: Unremarkable measure 1.8 x 2.5 x 2.3 cm.No adnexal free fluid. No adnexal masses. FREE FLUID: None. OTHER: No other significant finding. IMPRESSION: 1. Intrauterine with questionable 1.6 mm pole and possible positive car diac activity although evaluation limited secondary to pole size. Recommend follow-up beta HCG and ultrasound. 2. Additional solid hyperechoic amorphous lesion within the gestational sac measuring up to 1.4 cm s uggestive of gestational trophoblastic disease/ partial molar . Beta HCG elevated out of pr oportion to the size of the pole. Recommend [place] [employer] consultation. 3. Small subchorionic hemorrhage measuring up to 1.3 cm. FINDINGS DISCUSSED WITH NAS AT 1518 HOURS ON 06/26/2019. TECHNICAL DOCUMENTATION: JOB ID: [id number] [employer]- All Rights Reserved Reading location - IP/workstation name: [email or web address]
[2019-06-26 16:07] LABS: CHLAM PCR NOT DETECTED (NOT DETECT)
[2019-06-26] MEDS ORDERED: NORMAL SALINE 250 ML IV PRN (16:26)
--- NOTE | 2019-06-26 16:30 | PDOC H&P ---
History of Present Illness Admission Date/PCP: 06/26/19 Patient complains of: Abdominal pain and nausea/vomiting History of Present Illness: TRINO WILLS is a 28 year old -0-1-2 scented to [facility] complaining of nausea/vomiting and abdominal pain. She was also complaining of some vaginal discharge. Patient stated her last menstrual period was in May. She missed her last menstrual period and used Plan B. Patient denies vaginal bleeding. On today's pelvic ultrasound, showed an intrauterine at 6-5/7 weeks as well as a molar . However, her QBHCG is 32,000. Past Medical History LMP: 04/16/ 1 Baby 1 Female Year: 2,011 Delivery: Spontaneous Vaginal Delivery 2 Baby 2 Male Year: ,015 Delivery: Spontaneous Vaginal Delivery 3 Spontaneous Year: ,018 Delivery: Curettage 4 Year: Psychiatric Medical History: Denies: Depression Past Surgical History Past Surgical History: Reports: Other - Suction D&C in 2018 Social History Lives with: Family Smoking Status: Never Smoker Electronic Cigarette use?: No Frequency of Alcohol Use: None Hx Recreational Drug Use: No Hx Prescription Drug Abuse: No Family History Family History: Reviewed & Not Pertinent Parental Family History Reviewed: Yes Children Family History Reviewed: NA Sibling(s) Family History Reviewed.: NA Medication/Allergy Home Medications: Ibuprofen [Motrin 800 mg Tablet] 800 mg PO Q8HP PRN #60 tablet 08/26/17 Methocarbamol [Robaxin 500 Mg Tablet] 500 mg PO QID PRN #24 tablet 02/03/18 Naproxen [Naprosyn 250 Nmg Tablet] 1 tab PO BID #14 tablet 02/03/18 Hyoscyamine Sulfate [Levsin 0.125 Tablet] 0.125 mg PO QID PRN #20 tablet 07/26/18 Allergies/Adverse Reactions: No Known Allergies Allergy (Verified 07/26/18 12:37) Review of Systems Constitutional: PRESENT: as per HPI Cardiovascular: ABSENT: as per HPI, chest pain, dyspnea on exertion, edema, or thropnea, palpitations, other Respiratory: ABSENT: as per HPI, cough, dyspnea, hemoptysis, sputum, other Gastrointestinal: PRESENT: nausea, vomiting Physical Exam - Physical Exam Vital Signs: Temp Pulse Resp BP Pulse Ox 98.3 F 77 16 102/63 97 06/26/19 11:48 06/26/19 11:48 06/26/19 11:48 06/26/19 11:48 06/26/19 11:48 Intake & Output 06/25/19 06/26/19 06/27/19 06:59 06:59 06:59 Intake Total 1000 Balance 1000 Weight 66.1 kg General appearance: PRESENT: no acute distress Respiratory exam: PRESENT: clear to auscultation abida Cardiovascular exam: PRESENT: RRR GI/Abdominal exam: PRESENT: normal bowel sounds, soft Extremities exam: ABSENT: calf tenderness, clubbing, full ROM, joint swelling, pedal edema, tenderness, +1 edema, +2 edema, other Result Laboratory Results: 06/26/19 12:06 06/26/19 12:06 06/26/19 06/26/19 06/26/19 11:59 12:06 12:06 WBC 7.4 RBC 5.13 Hgb 10.0 L Hct 32.5 L MCV 63 L MCH 19.5 L MCHC 30.8 L RDW 20.4 H Plt Count 336 Seg Neutrophils % 71.1 Sodium 139.8 Potassium 4.2 Chloride 105 Carbon Dioxide 23 Anion Gap 12 BUN 6 L Creatinine 0.48 L Est GFR ( Amer) > 60 Glucose 83 Calcium 9.4 Total Bilirubin 0.5 AST 21 Alkaline Phosphatase 70 Total Protein 7.6 Albumin 4.5 Lipase 125.7 Urine Color YELLOW Urine Appearance SLIGHTLY-CLOUDY Urine pH 6.0 Ur Specific Ramsey 1.024 Urine Protein 30 H Urine Glucose (UA) NEGATIVE Urine Ketones 80 H Urine Blood NEGATIVE Urine RBC (Auto) 3 Impressions: Obstetrics Ultrasound 06/26/19 11:55 IMPRESSION: 1. Intrauterine with questionable 1.6 mm pole and possible positive cardiac activity although evaluation limited secondary to fe prema pole size. Recommend follow-up beta HCG and ultrasound. 2. 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 Beta HCG elevated out of proportion to the size of the pole. Recommend Tariff Publishing Agent consultation. 3. Small subchorionic hemorrhage measuring up to 1.3 cm. FINDINGS DISCUSSED WITH NAS AT 1518 HOURS ON 06/26/2019. Assessment & Plan - Diagnosis (1) Early stage of Is this a current diagnosis for this admission?: Yes (2) Molar Is this a current diagnosis for this admission?: Yes (3) Anemia Qualifiers: Anemia type: iron deficiency Is this a current diagnosis for this admission?: Yes - Time Critical Time spent with patient: 15-24 minutes - Plan Summary Plan Summary: 1. Consent for suction D&C 2. Consent for blood products 3. Hold 2 units of packed red blood cells
[2019-06-26] MEDS ORDERED: DOXYCYCLINE HYCLATE INJ 100 MG VIAL IV ONE (18:30)
[2019-06-26] MEDS ORDERED: LIDOCAINE 2% INJ-PF (20 MG/ML) 10 ML AMPUL ONE (21:24)
[2019-06-26] MEDS ORDERED: FENTANYL CITRATE INJ/PF 100 MCG/2 ML AMPUL ONE (21:24)
[2019-06-26] MEDS ORDERED: MIDAZOLAM 2 MG/2 ML INJ ONE (21:25)
[2019-06-26] MEDS ORDERED: ONDANSETRON HCL INJ/PF 4 MG/2 ML SDV ONE (21:25)
[2019-06-26] MEDS ORDERED: PROPOFOL INJ 200 MG/20 ML VIAL IV ONE (21:25)
[2019-06-26] MEDS ORDERED: DEXAMETHASONE SOD PHOSPHATE INJ 4 MG/1 ML VIAL ONE (21:25)
[2019-06-26] MEDS ORDERED: METHYLERGONOVINE MALEATE INJ/PF 0.2 MG/1 ML AMPULE ONE (21:32)
[2019-06-26] MEDS ORDERED: MISOPROSTOL 0.2 MG TABLET ONE (21:32)
[2019-06-26] MEDS ORDERED: DIPHENHYDRAMINE HCL 50 MG/ML VIAL IV PRN (22:06)
[2019-06-26] MEDS ORDERED: ONDANSETRON HCL INJ/PF 4 MG/2 ML SDV IV PRN (22:06)
[2019-06-26] MEDS ORDERED: FENTANYL CITRATE INJ/PF 100 MCG/2 ML AMPUL IV PRN ×3 (22:06)
[2019-06-26] MEDS ORDERED: PROMETHAZINE HCL INJ 25 MG/1 ML VIAL IV PRN ×2 (22:06)
--- NOTE | 2019-06-26 22:32 | Operative Report ---
Operative Report DATE OF SURGERY: 06/26/19 PREOPERATIVE DIAGNOSIS: 1. Intrauterine at 6-5/7 weeks. 2. Molar p regnancy. 3. Rh- POSTOPERATIVE DIAGNOSIS: Same OPERATION: Suction dilatation and curettage SURGEON: DENNIS KAYE ANESTHESIA: GA TISSUE REMOVED OR ALTERED: Products of conception COMPLICATIONS: None QUANTITATIVE BLOOD LOSS: 100 INTRAOPERATIVE FINDINGS: Uterus sounded 10 cm; moderate amounts of products of conception; 10 mm curved Swedish curette used PROCEDURE: The patient was taken to the Operating Room where general anesthesia was obtained without difficulty. She was prepped and draped in the normal sterile fashion in the dorsal lithotomy position. Exam under anesthesia was performed and noted above. A speculum was placed in the vagina. The anterior cervix was grasped with a single-tooth tenaculum and the uterus sounded to 10 cm. The cervix was noted to be closed at the beginning of the procedure. Sequential dilators were then used to dilate the cervix to accommodate the the 10 mm suction curette curved. The 10 mm curved suction curette was gently advanced in the usual fashion and good return of tissue. The suction device was then activated and the curette rotated to clear the uterus of the products of conception. A sharp curettage was then performed. The suction device was then gently reintroduced and activated and the curette rotated to clear the uterus of conception which was loosened with recent sharp curettage. The sharp curettage was then performed again until a gritty texture was noted and the cavity was felt to be empty of further tissue. At this time there was minimal bleeding noted from the cervix. Monsel's solution was applied to the tenaculum site for hemostasis. All instruments were removed from the patient's cervix and vagina. Sponge, lap and instrument counts are correct 2. Doxycycline 100 mg IV was given perioperatively. Cytotec 800 mcg were placed per rectum at the end of the procedure. The patient tolerated the procedure well and was taken to the recovery area awake and in stable condition. The patient was discharged home.
--- NOTE | 2019-06-26 22:38 | PDOC DISCHARGE SUMMARY ---
Impression - Admit/DC Date/PCP Admission Date/Primary Care Provider: 06/26/19 17:01 Discharge Date: 06/26/19 - Discharge Diagnosis (1) Early stage of Is this a current diagnosis for this admission?: Yes (2) Molar Is this a current diagnosis for this admission?: Yes (3) Anemia Is this a current diagnosis for this admission?: Yes - Additional Information Resuscitation Status: Full Code Discharge Diet: As Tolerated Discharge Activity: Activity As Tolerated Referrals: DENNIS BENSON DO [ACTIVE STAFF] - Home Medications: No Home Medications 06/26/19 History of Present Illiness History of Present Illness: TRINO WILLS is a 28 year old -0-1-2 scented to [facility] ED complaining of nausea/vomiting and abdominal pain. She was also complaining of some vaginal discharge. Patient stated her last menstrual period was in May. She missed her last menstrual period and used Plan B. Patient denies vaginal bleeding. On today's pelvic ultrasound, showed an intrauterine at 6-5/7 weeks as well as a molar . However, her QBHCG is 32,000. Hospital Course Hospital Course: Hospital course was essentially uneventful. Patient was taken to the operating suite where a suction D&C was performed without complications. She is Rh-, therefore she received her RhoGam prior to discharge. Physical Exam - Physical Exam Vital Signs: Temp Pulse Resp BP Pulse Ox 99.8 F 82 18 97/59 L 100 06/26/19 19:51 06/26/19 19:51 06/26/19 19:51 06/26/19 19:51 06/26/19 19:51 Intake & Output 06/25/19 06/26/19 06/27/19 06:59 06:59 06:59 Intake Total 1999 Balance 1999 Weight 68.9 kg General appearance: PRESENT: no acute distress Respiratory exam: PRESENT: clear to auscultation abida Cardiovascular exam: PRESENT: RRR GI/Abdominal exam: PRESENT: normal bowel sounds, soft Extremities exam: ABSENT: calf tenderness, clubbing, full ROM, joint swelling, pedal edema, tenderness, +1 edema, +2 edema, other Results Laboratory Results: WBC 7.4 10^3/uL (4.0-10.5) 06/26/19 12:06 RBC 5.13 10^6/uL (3.72-5.28) 06/26/19 12:06 Hgb 10.0 g/dL (12.0-15.5) L 06/26/19 12:06 Hct 32.5 % (36.0-47.0) L 06/26/19 12:06 MCV 63 fl (80-97) L 06/26/19 12:06 MCH 19.5 pg (27.0-33.4) L 06/26/19 12:06 MCHC 30.8 g/dL (32.0-36.0) L 06/26/19 12:06 RDW 20.4 % (11.5-14.0) H 06/26/19 12:06 Plt Count 336 10^3/uL (150-450) 06/26/19 12:06 Lymph % (Auto) 19.4 % (13-45) 06/26/19 12:06 Hawkins % (Auto) 8.5 % (3-13) 06/26/19 12:06 Eos % (Auto) 0.2 % (0-6) 06/26/19 12:06 Baso % (Auto) 0.8 % (0-2) 06/26/19 12:06 Absolute Neuts (auto) 5.3 10^3/uL (1.7-8.2) 06/26/19 12:06 Absolute Lymphs (auto) 1.4 10^3/uL (0.5-4.7) 06/26/19 12:06 Absolute Monos (auto) 0.6 10^3/uL (0.1-1.4) 06/26/19 12:06 Absolute Eos (auto) 0.0 10^3/uL (0.0-0.6) 06/26/19 12:06 Absolute Basos (auto) 0.1 10^3/uL (0.0-0.2) 06/26/19 12:06 Seg Neutrophils % 71.1 % (42-78) 06/26/19 12:06 Platelet Comment ADEQUATE 06/26/19 12:06 Polychromasia SLIGHT 06/26/19 12:06 Hypochromasia 2+ 06/26/19 12:06 Poikilocytosis 2+ 06/26/19 12:06 Anisocytosis 3+ 06/26/19 12:06 Microcytosis 3+ 06/26/19 12:06 Ovalocytes 2+ 06/26/19 12:06 Sodium 139.8 mmol/L (137-145) 06/26/19 12:06 Potassium 4.2 mmol/L (3.6-5.0) 06/26/19 12:06 Chloride 105 mmol/L (98-107) 06/26/19 12:06 Carbon Dioxide 23 mmol/L (22-30) 06/26/19 12:06 Anion Gap 12 (5-19) 06/26/19 12:06 BUN 6 mg/dL (7-20) L 06/26/19 12:06 Creatinine 0.48 mg/dL (0.52-1.25) L 06/26/19 12:06 Est GFR ( Amer) > 60 (>60) 06/26/19 12:06 Est GFR (MDRD) Non-Af > 60 (>60) 06/26/19 12:06 Glucose 83 mg/dL (75-110) 06/26/19 12:06 Calcium 9.4 mg/dL (8.4-10.2) 06/26/19 12:06 Total Bilirubin 0.5 mg/dL (0.2-1.3) 06/26/19 12:06 Direct Bilirubin 0.1 mg/dL (0.0-0.4) 06/26/19 12:06 Neonat Total Bilirubin Not Reportable 06/26/19 12:06 Neonat Direct Bilirubin Not Reportable 06/26/19 12:06 Neonat Indirect Bili Not Reportable 06/26/19 12:06 AST 21 U/L (14-36) 06/26/19 12:06 ALT 36 U/L (<35) 06/26/19 12:06 Alkaline Phosphatase 70 U/L (38-126) 06/26/19 12:06 Total Protein 7.6 g/dL (6.3-8.2) 06/26/19 12:06 Albumin 4.5 g/dL (3.5-5.0) 06/26/19 12:06 Lipase 125.7 U/L (23-300) 06/26/19 12:06 Beta HCG, Quant 44289.00 mIU/mL (0.0-6.15) H 06/26/19 12:06 Total Beta HCG POSITIVE (NEGATIVE) 06/26/19 12:06 Urine Color YELLOW 06/26/19 11:59 Urine Appearance SLIGHTLY-CLOUDY 06/26/19 11:59 Urine pH 6.0 (5.0-9.0) 06/26/19 11:59 Ur Specific Woodruff 1.024 06/26/19 11:59 Urine Protein 30 mg/dL (NEGATIVE) H 06/26/19 11:59 Urine Glucose (UA) NEGATIVE mg/dL (NEGATIVE) 06/26/19 11:59 Urine Ketones 80 mg/dL (NEGATIVE) H 06/26/19 11:59 Urine Blood NEGATIVE (NEGATIVE) 06/26/19 11:59 Urine Nitrite (Reflex) POSITIVE (NEGATIVE) H 06/26/19 11:59 Urine Bilirubin NEGATIVE (NEGATIVE) 06/26/19 11:59 Urine Urobilinogen 4.0 mg/dL (<2.0) H 06/26/19 11:59 Leukocyte Esterase Rfl SMALL (NEGATIVE) H 06/26/19 11:59 Urine RBC (Auto) 3 /HPF 06/26/19 11:59 Urine Bacteria (Auto) 3+ /HPF 06/26/19 11:59 Urine WBC (Reflex) 14 /HPF 06/26/19 11:59 Squamous Epi Cells Auto 2 /HPF 06/26/19 11:59 Urine Mucus (Auto) MANY /LPF 06/26/19 11:59 Urine Ascorbic Acid NEGATIVE (NEGATIVE) 06/26/19 11:59 Epi Cells (Wet Prep) 3+ EPITHELIALS SEEN 06/26/19 13:00 Trichomonas (Wet Prep) TRICHOMONAS SEEN 06/26/19 13:00 Vaginal WBC 1+ WBCS SEEN 06/26/19 13:00 Vaginal RBC NO RBCS SEEN 06/26/19 13:00 Vaginal Yeast NO YEAST SEEN 06/26/19 13:00 Chlamydia DNA (PCR) NOT DETECTED (NOT DETECT) 06/26/19 13:00 N.gonorrhoeae DNA (PCR) NOT DETECTED (NOT DETECT) 06/26/19 13:00 Blood Type AB NEGATIVE 06/26/19 16:47 Blood Type AB NEGATIVE 06/26/19 16:47 Antibody Screen NEGATIVE 06/26/19 16:47 Rhogam Indicated RHOGAM REQUESTED 06/26/19 16:47 Crossmatch See Detail 06/26/19 16:47 Impressions: Obstetrics Ultrasound 06/26/19 11:55 IMPRESSION: 1. Intrauterine with questionable 1.6 mm pole and possible positive cardiac activity although evaluation limited secondary to pole size. Recommend follow-up beta HCG and ultrasound. 2. 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 Beta HCG elevated out of proportion to the size of the pole. Recommend Networking Engineer consultation. 3. Small subchorionic hemorrhage measuring up to 1.3 cm. FINDINGS DISCUSSED WITH NAS AT 1518 HOURS ON 06/26/2019. Plan Plan of Treatment: 1. Discharge home 2. Follow-up in the office at [facility], in 2 weeks or sooner if needed 3. Strict pelvic rest Time Spent: Greater than 30 Minutes Stroke Is this a Stroke Patient?: No Acute Heart Failure - Is this a Heart Failure Patient?: No
[2019-06-26] MEDS ORDERED: KETOROLAC TROMETHAMINE INJ/PF 30 MG/1 ML SDV ONE (23:05)
[2019-06-26] MEDS ORDERED: KETOROLAC TROMETHAMINE INJ/PF 30 MG/1 ML SDV IV ONE (23:45)
[2019-06-27 01:17] VITALS: BP 97/59
[2019-07-02 13:18] LABS: PATH REVIEW PATHOLOGIST REVIEWED
== END 2019-06-27 01:36 | disposition home or self-care (01) ==
LOC: ER 11:40 → INTOOBSV 17:01 → EH 17:01 → 2N 19:25
PROVIDERS: ADMIT Obstetrics & Gynecology; ATTEND Obstetrics & Gynecology
DX: O02.0 Blighted ovum and nonhydatidiform mole (principal); O08.89 Other complications following an ectopic and molar pregnancy; D50.9 Iron deficiency anemia, unspecified; O26.891 Other specified pregnancy related conditions, first trimester; Z67.91 Unspecified blood type, Rh negative
CPT/HCPCS: 99284; 96361; 96374; 86900; 86901; 36415; 87040; 87086; 87210; 86850; 84702; 83690; 85025; 87088; 80053; 81001; 87186; 86920; 87491; 87591; 88305 ×2; 76817; 01965; 59820; G0378; J2790; J2250; J1100; J3490 ×2; J3010; J1885; J0330; J2405; J7030; J2704; 1965; J2210

== ENCOUNTER 2019-12-02 07:18 | Emergency (ER) | payer MEDICAID ==
[2019-12-02] MEDS ORDERED: ONDANSETRON 4 MG TAB.RAPDIS PO ONE (08:15)
--- NOTE | 2019-12-02 08:16 | ER Document Report ---
HPI - HPI Patient complains to provider of: Urinary Time Seen by Provider: 12/02/19 08:05 Onset: Other - 10/19/2019 Onset/Duration: Persistent Quality of pain: Achy Pain Level: 3 Context: Patient presents complaining of urinary frequency with cloudy urine. Patient does complain of some nausea. No vomiting or diarrhea. Patient denies any vaginal bleeding or discharge. Patient denies any fever. Associated Symptoms: Other - Lower pelvic pain, cloudy urine. denies: Nonproductive cough, Productive cough, Fever, Vomiting Exacerbated by: Denies Relieved by: Denies Similar symptoms previously: No Recently seen / treated by doctor: No - ROS ROS below otherwise negative: Yes Systems Reviewed and Negative: Yes All other systems reviewed and negative - CONSTITUTIONAL Constitutional: DENIES: Fever, Chills - RESPIRATORY Respiratory: DENIES: Coughing - GASTROINTESTINAL Gastrointestinal: REPORTS: Abdominal Pain, Nausea - URINARY Urinary: REPORTS: Urgency, Frequency - MUSCULOSKELETAL Musculoskeletal: DENIES: Back Pain - DERM Skin Color: Normal Skin Problems: None Past Medical History - General Information source: Patient - Social History Smoking Status: Former Smoker Frequency of alcohol use: Occasional Drug Abuse: Marijuana Occupation: nursing Family History: Reviewed & Not Pertinent Patient has homicidal ideation: No Renal/ Medical History: Denies: Hx Peritoneal Dialysis Psychiatric Medical History: Reports: Hx Anxiety Denies: Hx Depression Past Surgical History: Reports: Hx Gynecologic Surgery - D&C, Other - Suction D&C in 2018 - Immunizations Hx Diphtheria, Pertussis, Tetanus Vaccination: Yes Vertical Provider Document - CONSTITUTIONAL Agree With Documented VS: Yes Exam Limitations: No Limitations General Appearance: WD/WN, No Apparent Distress - INFECTION CONTROL TRAVEL OUTSIDE OF THE [place] IN LAST 30 DAYS: No - HEENT HEENT: Atraumatic, Normocephalic - NECK Neck: Normal Inspection, Supple - RESPIRATORY Respiratory: Breath Sounds Normal, No Respiratory Distress - CARDIOVASCULAR Cardiovascular: Regular Rate, Regular Rhythm - GI/ABDOMEN Gastrointestinal: Abdomen Soft, Abdomen Tender - Suprapubic, No Organomegaly - BACK Back: Normal Inspection. negative: CVA Tenderness-Right, CVA Tenderness-Left - MUSCULOSKELETAL/EXTREMETIES Musculoskeletal/Extremeties: MAEW, FROM - NEURO Level of Consciousness: Awake, Alert, Appropriate Motor/Sensory: No Motor Deficit - DERM Integumentary: Warm, Dry, No Rash Course - Re-evaluation Re-evalutation: 12/02/19 09:32 Patient with UTI, no flank pain, no fever. Patient otherwise nontoxic in appearance. No concern for pyelonephritis. - Vital Signs Vital signs: Temp Pulse Resp BP Pulse Ox 99.0 F 109 H 20 106/64 99 12/02/19 07:45 12/02/19 07:21 12/02/19 07:21 12/02/19 07:21 12/02/19 07:21 - Laboratory Laboratory results interpreted by me: 12/02/19 16:32 Labs- Entire Visit 12/02/19 08:50 Urine Color YELLOW Urine Appearance CLOUDY Urine pH 6.0 Ur Specific Jackson 1.027 Urine Protein 30 H Urine Glucose (UA) NEGATIVE Urine Ketones NEGATIVE Urine Blood NEGATIVE Urine Nitrite POSITIVE H Urine Bilirubin NEGATIVE Urine Urobilinogen 4.0 H Ur Leukocyte Esterase LARGE H Urine WBC (Auto) 44 Urine RBC (Auto) 5 U Hyaline Cast (Auto) 1 Urine Bacteria (Auto) 3+ Squamous Epi Cells Auto 8 Urine Mucus (Auto) FEW Urine Ascorbic Acid NEGATIVE Urine HCG, Qual NEGATIVE Discharge - Discharge Clinical Impression: UTI (urinary tract infection) Qualifiers: Urinary tract infection type: site unspecified Hematuria presence: without hematuria Qualified Code(s): N39.0 - Urinary tract infection, site not specified Condition: Stable Disposition: HOME, SELF-CARE Instructions: Cephalexin ([facility]), Urinary Anesthetic Agent ([facility]), Urinary Tract Infection ([facility]) Additional Instructions: Return immediately for any new or worsening symptoms Followup with your primary care provider, call tomorrow to make a followup appointment Prescriptions: Cephalexin Monohydrate [Keflex 500 mg Capsule] 500 mg PO BID 7 Days #14 capsule Phenazopyridine HCl [Pyridium 200 mg Tablet] 200 mg PO TID #15 tablet Referrals: LIBBY WEAVER MD [Primary Care Provider] - Follow up as needed
[2019-12-02 09:19] LABS: APPEARANCE,URINE CLOUDY; BILIRUBIN,URINE NEGATIVE (NEGATIVE); COLOR,URINE YELLOW; GLUCOSE, URINE NEGATIVE (NEGATIVE); KETONES,URINE NEGATIVE (NEGATIVE); LEUKOCYTE ESTERASE,URINE LARGE (NEGATIVE); NITRITE,URINE POSITIVE (NEGATIVE); PROTEIN,URINE 30 mg/dL (NEGATIVE); URINE SPECIFIC GRAVITY 1.027
[2019-12-02] MEDS ORDERED: CEPHALEXIN 500 MG CAPSULE PO ONE (09:31)
[2019-12-02] MEDS ORDERED: PHENAZOPYRIDINE HCL 200 MG TABLET PO ONE (09:31)
[2019-12-02 10:07] VITALS: BP 104/61
== END 2019-12-02 10:09 | disposition home or self-care (01) ==
LOC: ER 07:18
DX: N39.0 Urinary tract infection, site not specified (principal); R11.0 Nausea; R10.2 Pelvic and perineal pain; R35.0 Frequency of micturition; R39.15 Urgency of urination; F12.10 Cannabis abuse, uncomplicated; Z87.891 Personal history of nicotine dependence
CPT/HCPCS: 99283; 81025; 81001; S0119; J3490

== ENCOUNTER 2020-07-12 12:25 | Emergency (ER) | payer MEDICAID ==
--- NOTE | 2020-07-12 13:42 | ER Document Report ---
ED General - General Chief Complaint: Congestion Stated Complaint: NO SMELL/TASTE,CHILLS,CONGESTION Time Seen by Provider: 07/12/20 13:42 Primary Care Provider: LEOPOLDO DE LA ROSA MD [ACTIVE STAFF] - Follow up as needed LIBBY WEAVER MD [ACTIVE STAFF] - Follow up as needed TRAVEL OUTSIDE OF THE [place] IN LAST 30 DAYS: No - HPI Notes: 29-year-old female presents to the emergency room today for complaints of congestion for the last week with loss of smell which started yesterday. Patient is not sure if this is allergy related. Denies any positive Covid test but she has been exposed to her coworkers who have tested positive for Covid this week. Has not tried any orjc-ylk-[id number] medications. Last menstrual cycle was 06/28/2020. Denies any vaginal bleeding or vaginal discharge. Eating drinking without any issues. Denies fevers, chills, chest pain,palpitations, shortness of breath, dyspnea, nausea, vomiting, diarrhea, abdominal pain, hematuria,blurred vision, double vision, loss of vision, speech changes, LH, dizziness, syncope, headaches, wheezing, ST, neck pain, weakness, bowel or bladder dysfunction, saddle anesthesia, numbness or tingling in bilateral upper or lower extremities equally, muscle paralysis, weakness in bilateral upper or lower extremities equally or rash. - Related Data Allergies/Adverse Reactions: No Known Allergies Allergy (Verified 07/12/20 13:35) Past Medical History - General Information source: Patient - Social History Smoking Status: Current Some Day Smoker Family History: Reviewed & Not Pertinent Renal/ Medical History: Denies: Hx Peritoneal Dialysis Psychiatric Medical History: Reports: Hx Anxiety Denies: Hx Depression Past Surgical History: Reports: Hx Gynecologic Surgery - D&C, Other - Suction D&C in 2018 - Immunizations Hx Diphtheria, Pertussis, Tetanus Vaccination: Yes Review of Systems - Review of Systems Constitutional: No symptoms reported EENT: See HPI Cardiovascular: No symptoms reported Respiratory: No symptoms reported Gastrointestinal: No symptoms reported Genitourinary: No symptoms reported Female Genitourinary: No symptoms reported Musculoskeletal: No symptoms reported Skin: No symptoms reported Hematologic/Lymphatic: No symptoms reported Neurological/Psychological: No symptoms reported Physical Exam - Vital signs Vitals: Temp Pulse Resp BP Pulse Ox 98.3 F 67 16 108/73 100 07/12/20 12:57 12/12/20 12:57 07/12/20 12:57 07/12/20 12:57 07/12/20 12:57 - Notes Notes: MEDICATIONS: I agree with the patient medications as charted by the RN. ALLERGIES: I agree with the allergies as charted by the RN. PAST MEDICAL HISTORY/PAST SURGICAL HISTORY: Reviewed and agree as charted by RN. SOCIAL HISTORY: Reviewed and agree as charted by RN. FAMILY HISTORY: No significant familial comorbid conditions directly related to patient complaint EXAM: Reviewed vital signs as charted by RN. PHYSICAL EXAMINATION: reviewed vital signs by RN GENERAL: Well-appearing, well-nourished and in no acute distress. HEAD: Atraumatic, normocephalic. EYES: Pupils equal round and reactive to light, extraocular movements intact, conjunctiva are normal. ENT: Nares patent, oropharynx clear without exudates. Moist mucous membranes. NECK: Normal range of motion, supple without lymphadenopathy LUNGS: Breath sounds clear to auscultation bilaterally and equal. No wheezes rales or rhonchi. HEART: Regular rate and rhythm without murmurs ABDOMEN: Soft, nontender, nondistended abdomen. No guarding, no rebound. No masses appreciated. Female : deferred Musculoskeletal: Normal range of motion, no pitting or edema. No cyanosis. NEUROLOGICAL: Cranial nerves grossly intact. Normal speech, normal gait. Normal sensory, motor exams PSYCH: Normal mood, normal affect. SKIN: Warm, Dry, normal turgor, no rashes or lesions noted. Course - Re-evaluation Re-evalutation: 07/12/20 15:15 Afebrile, vitals stable no distress. Eating and drinking without any issues. Chest x-ray does show some mild linear left basilar densities which could be atelectasis or infectious process per radiology. Patient is under investigation for Covid, Covid test has been done. We will place her on azithromycin and a r escue inhaler outpatient. Advised to self quarantine, wear mask and social distance until Covid test is known. Work note has been provided. Advised to rest, avoid strenuous activities and to return to the emergency room if she experiences any worsening symptoms. After performing a Medical Screening Examination, I estimate there is LOW risk for ACUTE CORONARY SYNDROME, PULMONARY EMBOLI, RESPIRATORY FAILURE, SEPSIS OR MENINGITIS, thus I consider the discharge disposition reasonable. I have reevaluated this patient multiple times and no significant life threatening changes are noted. The patient and I have discussed the diagnosis and risks, and we agree with discharging home with close follow- up. We also discussed returning to the Emergency Department immediately if new or worsening symptoms occur. We have discussed the symptoms which are most concerning (e.g., changing or worsening pain, trouble swallowing or breathing, neck stiffness, fever) that necessitate immediate return. - Vital Signs Vital signs: Temp Pulse Resp BP Pulse Ox 98.3 F 67 16 108/73 100 07/12/20 12:57 07/12/20 12:57 07/12/20 12:57 07/12/20 12:57 07/12/20 12:57 - Laboratory Results Critical Laboratory Results Reviewed: No Critical Results - Radiology Results Critical Radiology Results Reviewed: No Critical Results Discharge - Discharge Clinical Impression: Person under investigation for COVID-19, URI (upper respiratory infection) Condition: Stable Disposition: HOME, SELF-CARE Instructions: COVID-19 Guidance for Persons Under Investigation, Upper Respiratory Illness ([facility]) Additional Instructions: Under investigation for Covid, your results are pending. In the interim please self quarantine, social distance, wash hands. You can use [id number] decongestions for your nasal congestion, cough drops, salt water gargles. Alternate between Tylenol and ibuprofen for pain control. Your chest x-ray was normal today. Follow-up with your primary care provider within the next 24 to 48 hours as needed. Return immediately for any new or worsening symptoms. Follow up with primary care provider, call tomorrow to make followup appointment. Prescriptions: Albuterol Sulfate [Proair Hfa Inhalation Aerosol 8.5 gm Mdi] 1 puff IH Q4 PRN #1 mdi PRN Reason: Cough Azithromycin [Zithromax] 250 mg PO DAILY 5 Days #6 tablet Forms: Return to Work Referrals: LIBBY WEAVER MD [ACTIVE STAFF] - Follow up as needed LEOPOLDO DE LA ROSA MD [ACTIVE STAFF] - Follow up as needed
--- NOTE | 2020-07-12 14:58 | RADIOLOGY REPORT (SQ) ---
EXAM DESCRIPTION: CHEST SINGLE VIEW IMAGES COMPLETED DATE/TIME: 07/12/2020 2:33 pm REASON FOR STUDY: cough, congestion x 1 week COMPARISON: Chest radiographs 02/24/2017 EXAM PARAMETERS: NUMBER OF VIEWS: One view. TECHNIQUE: Single frontal radiographic view of the chest acquired. RADIATION DOSE: NA LIMITATIONS: None. FINDINGS: LUNGS AND PLEURA: Mild linear left basilar densities. No pneumothorax or pleural effusion . MEDIASTINUM AND HILAR STRUCTURES: No masses. Contour normal. HEART AND VASCULAR STRUCTURES: Heart normal in size. Normal vasculature. BONES: No acute findings. HARDWARE: None in the chest. OTHER: No other significant finding. IMPRESSION: Mild linear left basilar densities suggestive of atelectasis, although an underlying a a cute infectious process cannot be excluded. TECHNICAL DOCUMENTATION: JOB ID: [id number] 2010 [employer]- All Rights Reserved Reading location - IP/workstation name: [email or web address]
[2020-07-12 15:28] VITALS: BP 102/70
== END 2020-07-12 15:27 | disposition home or self-care (01) ==
LOC: ER 12:25
DX: U07.1 COVID-19 (principal); J06.9 Acute upper respiratory infection, unspecified; F17.200 Nicotine dependence, unspecified, uncomplicated
CPT/HCPCS: 99284; 87635; 71045; C9803